=== PATIENT | male | born 1945 | race Caucasian/White ===

== ENCOUNTER → 2019-05-25 | Outpatient (CLI) | payer OTHER ==
[~2019-05-25] MED LIST: ACET325 PO; CENTRUM COMPLE1 EACH PO; LOSARTAN/HCTZ; LOSARTAN/HCTZ 100/25 PO; LOSHYD100 PO; METF500 PO; MULVITMIND PO; SITA100T2 PO
== END | disposition home or self-care (01) ==
LOC: LAB SHORT 08:00 → LAB 08:00
DX: L03.116 Cellulitis of left lower limb (principal)
CPT/HCPCS: 87070; 87077; 87147; 87186; 87205

== ENCOUNTER → 2019-06-29 | Outpatient (CLI) | payer OTHER | END | disposition home or self-care (01) | LOC: LAB 10:00 → LAB SHORT 10:00 | DX: L03.116 Cellulitis of left lower limb (principal) | CPT/HCPCS: 87070; 87077; 87147; 87186; 87205 ==

== ENCOUNTER → 2019-10-05 | Outpatient (CLI) | payer OTHER | END | disposition home or self-care (01) | LOC: LAB EV 10:13 → LAB SHORT 10:13 | DX: M25.521 Pain in right elbow (principal) | CPT/HCPCS: 84550 ==

== ENCOUNTER → 2021-02-21 | Outpatient (CLI) | payer OTHER | LOC: LAB SHORT 08:00 | DX: L03.116 Cellulitis of left lower limb (principal) | CPT/HCPCS: 87070; 87205 ==

== ENCOUNTER → 2021-03-14 | Outpatient (CLI) | payer OTHER ==
[~2021-03-14] MED LIST changes: +ALLO300 PO; +FUROSEMIDE20 MG PO; +KLOR-CON 1010 ME3 PO
== END | disposition home or self-care (01) ==
LOC: LAB 11:55 → LAB SHORT 11:55
DX: L03.116 Cellulitis of left lower limb (principal)
CPT/HCPCS: 87070; 87205

== ENCOUNTER 2021-03-24 22:02 | Emergency (ER) | payer OTHER ==
[~2021-03-24] VITALS: Ht 172.7 cm; Wt 131.5 kg
[~2021-03-24 22:02] MED LIST changes: -ALLO300 PO; -FUROSEMIDE20 MG PO; -KLOR-CON 1010 ME3 PO
== END 2021-03-24 23:18 | disposition home or self-care (01) ==
LOC: ER 22:02
DX: S91.312A Laceration without foreign body, left foot, initial encounter (principal); W26.8XXA Contact with other sharp object(s), not elsewhere classified, initial encounter; Y92.009 Unspecified place in unspecified non-institutional (private) residence as the place of occurrence of the external cause
CPT/HCPCS: 12001; 90471; 90714; 99282-25

== ENCOUNTER 2021-04-17 14:39 | Inpatient (IN) | payer OTHER ==
[~2021-04-17] VITALS: Ht 172.7 cm; Wt 120.7 kg
[2021-04-17] MEDS ORDERED: FUROSEMIDE20 MG PO (15:16)
[2021-04-17] MEDS ORDERED: ALLO300 PO (15:16)
[2021-04-17] MEDS ORDERED: KLOR-CON 1010 ME3 PO (15:16)
[2021-04-17 15:23] LABS: BASOPHILS ABSOLUTE AUTO 0.01 K/mm3 (0.00-0.23); BASOPHILS PERCENT AUTO 0 % (0-2); EOSINOPHILS PERCENT AUTO 0 % (0-6); Hematocrit 43.6 % (37.0-53.0); Hemoglobin 14.7 g/dL (13.5-17.5); IMMATURE GRAN ABSOLUTE AUTO 0.05 K/mm3 (0.00-0.10); IMMATURE GRAN PERCENT AUTO 1 % (0-1); LYMPHOCYTES ABSOLUTE AUTO 0.81 K/mm3 (0.84-5.20); LYMPHOCYTES PERCENT AUTO 11 % (21-46); MONOCYTES ABSOLUTE AUTO 0.28 K/mm3 (0.16-1.47); MONOCYTES PERCENT AUTO 4 % (4-13); Mean Corpuscular HGB Conc 33.7 g/dL (31.5-36.5); Mean Corpuscular Volume 95 fL (80-100); Mean Platelet Volume 11.4 fL (9.1-12.4); NEUTROPHILS ABSOLUTE AUTO 6.24 K/mm3 (1.96-9.15); NEUTROPHILS PERCENT AUTO 84 % (41-73); Platelet Count 115 K/mm3 (150-400); RDW Coefficient Variation 13.6 % (11.7-14.2); RDW Standard Deviation 47.8 fL (35.1-46.3); White Blood Cell Count 7.39 K/mm3 (4.00-11.30)
[2021-04-17 15:39] LABS: Albumin/Globulin Ratio 0.6 (0.8-1.8); Bilirubin, Total 0.8 mg/dL (0.1-1.0); Bun/Creatinine Ratio 15.8 (12.0-20.0); Calcium, Blood 8.1 mg/dL (8.5-10.1); Creatinine, Blood 1.46 mg/dL (0.60-1.20); Globulin, Blood 4.7 g/dL (2.2-4.0); Potassium, Blood 3.6 mmol/L (3.5-5.5); Total Protein, Blood 7.7 g/dL (6.4-8.2)
[2021-04-17 16:58] LABS: SARS-Cov-2 (COVID-19) PCR, MMC POSITIVE (NEGATIVE)
[2021-04-18 05:50] LABS: Hematocrit 44.7 % (37.0-53.0); Mean Corpuscular HGB 32.2 pg (26.0-34.0); Mean Corpuscular HGB Conc 33.6 g/dL (31.5-36.5); Mean Corpuscular Volume 96 fL (80-100); Platelet Count 103 K/mm3 (150-400); RDW Coefficient Variation 13.6 % (11.7-14.2); RDW Standard Deviation 48.6 fL (35.1-46.3); Red Blood Cell Count 4.66 M/mm3 (4.30-5.90); White Blood Cell Count 8.25 K/mm3 (4.00-11.30)
[2021-04-18 06:16] LABS: Albumin, Blood 2.6 g/dL (3.4-5.0); Albumin/Globulin Ratio 0.5 (0.8-1.8); Bilirubin, Total 0.7 mg/dL (0.1-1.0); Bun/Creatinine Ratio 20.6 (12.0-20.0); Calcium, Blood 8.8 mg/dL (8.5-10.1); Creatinine, Blood 1.26 mg/dL (0.60-1.20); Globulin, Blood 4.8 g/dL (2.2-4.0); Potassium, Blood 3.7 mmol/L (3.5-5.5); Total Protein, Blood 7.4 g/dL (6.4-8.2)
--- NOTE | 2021-04-18 06:24 | NUR ---
SHIFT SUMMARY AOX4. ADMITTED FOR COVID + LAST NIGHT. SPO2 88-94% ON 15L NONREBREATHER. HAS OCCASIONAL DYSPNEA & TACHYPNEA c RR24-34. LS DIM c SCATTERED EXP WHEEZES & COARSE IN BASES. OCC DRY NON PRODUCTIVE COUGH. DENIES PAIN, N/V. REPORTS LACK OF APPETITE. L FOOT HAS ULCER, TOOK PICS & PLACED BANDAGE. ENCOURAGED PT TO LIE PRONE. PT HAD BREATHING TX 2X & STATED THEY HELPED. INCONT OF URINE. CALL LIGHT IN REACH & PT ABLE TO MAKE NEEDS KNOWN.
--- NOTE | 2021-04-18 18:42 | NUR ---
PT IS AO,PT IS COVID POSITIVE, PT IS VERY HYPOXIC, PT HAVE BILATERAL PNEUMONIA,PT ON AIRBO 70L 90% FIO2 90 RESP IN HIGH 30'S AND 40'S, PT HAVE A LEFT ANKLE ULCER, PT IS DIABETIC, GAVE AN UPDATE TO HIS SON KARIME,PT IS IN BED, PT MOVE TO PCU TO MONITOR CLOSELY.
--- NOTE | 2021-04-18 19:12 | NUR ---
ASSUMPTION OF CARE NOTE THIS NURSE RECIEVED REPORT FROM EVONNE IBRAHIM AT APPROX. 1800. PT WAS TRANSFERED VIA HOSPITAL BED AND ASSISTED BY 4 DIFFERENT STAFF MEMBERS APROX. 1830. PT ARRIVED ON CPAP 12 AT 100% FIO2. SPO2 WAS IN LOW 90'S. PT WAS STABLE UPON ARRIVAL. PT WAS SETTLED INTO ROOM BY ROXIE IBRAHIM AND AMEE IBRAHIM. PATIENT WAS SETTLED INTO ROOM BY ROXIE IBRAHIM AND AMEE IBRAHIM SPO2 NOW 95%. HAND OFF REPORT GIVEN TO WILLEM IBRAHIM.
[2021-04-18 21:00] LABS: Source, Urine Catheter
[2021-04-18 21:04] LABS: Bilirubin, Urine Neg (Neg); Blood, Urine 5+ (Neg); Glucose Qualitative, Urine Neg (Neg); Ketones, Urine Neg (Neg); Leukocyte Esterase, Urine Neg (Neg); Nitrite, Urine Neg (Neg); Protein, Urine 3+ (Neg); Specific Gravity, Urine 1.015 (1.003-1.022); Urobilinogen, Urine NORM (Normal)
[2021-04-18 21:09] LABS: Appearance, Urine Hazy (Clear); Color, Urine Yellow (P-Yellow)
[2021-04-18 21:11] LABS: Amorphous Heavy (0-Heavy); Bacteria Few /hpf; Red Blood Cells, Urine 50-100 /hpf (0-2); Squamous Epithelial Cells Rare /hpf (Few); White Blood Cells, Urine Rare /hpf (0-5)
[2021-04-19 04:08] LABS: BASOPHILS ABSOLUTE AUTO 0.01 K/mm3 (0.00-0.23); BASOPHILS PERCENT AUTO 0 % (0-2); EOSINOPHILS PERCENT AUTO 0 % (0-6); Hematocrit 41.9 % (37.0-53.0); Hemoglobin 14.3 g/dL (13.5-17.5); IMMATURE GRAN ABSOLUTE AUTO 0.08 K/mm3 (0.00-0.10); IMMATURE GRAN PERCENT AUTO 1 % (0-1); LYMPHOCYTES ABSOLUTE AUTO 0.71 K/mm3 (0.84-5.20); LYMPHOCYTES PERCENT AUTO 6 % (21-46); MONOCYTES PERCENT AUTO 3 % (4-13); Mean Corpuscular HGB 32.4 pg (26.0-34.0); Mean Corpuscular HGB Conc 34.1 g/dL (31.5-36.5); Mean Corpuscular Volume 95 fL (80-100); NEUTROPHILS ABSOLUTE AUTO 10.98 K/mm3 (1.96-9.15); NEUTROPHILS PERCENT AUTO 90 % (41-73); Platelet Count 131 K/mm3 (150-400); RDW Coefficient Variation 13.6 % (11.7-14.2); RDW Standard Deviation 47.3 fL (35.1-46.3); Red Blood Cell Count 4.42 M/mm3 (4.30-5.90); White Blood Cell Count 12.18 K/mm3 (4.00-11.30)
[2021-04-19 04:30] LABS: Albumin, Blood 2.6 g/dL (3.4-5.0); Albumin/Globulin Ratio 0.6 (0.8-1.8); Bilirubin, Total 0.6 mg/dL (0.1-1.0); Calcium, Blood 8.9 mg/dL (8.5-10.1); Creatinine, Blood 1.29 mg/dL (0.60-1.20); Globulin, Blood 4.6 g/dL (2.2-4.0); Potassium, Blood 4.1 mmol/L (3.5-5.5); Total Protein, Blood 7.2 g/dL (6.4-8.2)
--- NOTE | 2021-04-19 05:54 | NUR ---
shift summary pt newly admitted to room from medical upon arrival. day rn received order to place gao in patient, but were unsuccessful in placement. pt appeared initially to be alert and oriented, following directions. as night went on, pt became increasingly confused, pulling at lines. prn ativan given multiple times with no improvements. redirection, securing and protecing lines and tubing done, but still no improvments. called md later in night for bilat wrist restraints as pt pulled everything off and out. restraints initiated, but then pt increasingly agitated d/t being restrained, md called again and started precedex gtt. on bipap 07/18 100% fio2. tele nsr 78. gao in place, draining to gravity, brandie care performed 400 uop. no bm. dressing changed on l ankle wound. q2 turns for pressure injury prevention. oral care q4. vss. call light within reach, bed in lowest position. will continue to monitor.
--- NOTE | 2021-04-19 07:58 | NUR ---
pt laying in bed with bipap in place, repositioned him to side, he is on precedex at this time. lungs are course t/0, no cough noted, hrr, tele in place running sr in the 70-80's, no edema noted, ppp+2, cap refill<3sec, vs stable, afebrile, iv site to lac infusing precedex at 0.4, has dressing to l ankle, wrist restraints in place, removed to reposition and assess. call light in reach.
--- NOTE | 2021-04-19 18:31 | NUR ---
pt unchanged from this am, continues on precedex, did turn of drip for a few hrs this afternoon as his heart rate was in the 40's, he was restarted after waking and pulling off bipap, no further changes this shift, call light in reach.
--- NOTE | 2021-04-19 19:35 | NUR ---
Update 04/19/21: Day 2 of hospitalization. Patient's condition worsened over night. He confusion increased and restraints necessary. Pt. near max settings on BiPAP. Concern that intubation might be necessary. Also noted that pt. likely to have a poor outcome if vent necessary. Dr. Jimenes as discussed patient's condition with his Deyanira. Patient's status remains full code. Palliative care consult ordered. Plan to continue follow patient's care and provide care coordination as needed. Palliative care likely to ezequiel out to Deyanira tomorrow to discuss care as well.
[2021-04-20 03:40] LABS: BASOPHILS ABSOLUTE AUTO 0.01 K/mm3 (0.00-0.23); BASOPHILS PERCENT AUTO 0 % (0-2); EOSINOPHILS PERCENT AUTO 0 % (0-6); Hematocrit 44.9 % (37.0-53.0); Hemoglobin 14.9 g/dL (13.5-17.5); Mean Corpuscular HGB 31.9 pg (26.0-34.0); Mean Corpuscular HGB Conc 33.2 g/dL (31.5-36.5); Mean Corpuscular Volume 96 fL (80-100); Mean Platelet Volume 10.8 fL (9.1-12.4); Platelet Count 126 K/mm3 (150-400); RDW Coefficient Variation 13.6 % (11.7-14.2); RDW Standard Deviation 48.6 fL (35.1-46.3); Red Blood Cell Count 4.67 M/mm3 (4.30-5.90); White Blood Cell Count 9.04 K/mm3 (4.00-11.30)
[2021-04-20 03:46] LABS: IMMATURE GRAN ABSOLUTE AUTO 0.07 K/mm3 (0.00-0.10); IMMATURE GRAN PERCENT AUTO 1 % (0-1); LYMPHOCYTES ABSOLUTE AUTO 0.79 K/mm3 (0.84-5.20); LYMPHOCYTES PERCENT AUTO 9 % (21-46); MONOCYTES ABSOLUTE AUTO 0.47 K/mm3 (0.16-1.47); MONOCYTES PERCENT AUTO 5 % (4-13); NEUTROPHILS PERCENT AUTO 85 % (41-73)
[2021-04-20 04:01] LABS: Albumin, Blood 2.7 g/dL (3.4-5.0); Albumin/Globulin Ratio 0.6 (0.8-1.8); Bilirubin, Total 0.8 mg/dL (0.1-1.0); Bun/Creatinine Ratio 29.5 (12.0-20.0); Calcium, Blood 8.6 mg/dL (8.5-10.1); Creatinine, Blood 1.29 mg/dL (0.60-1.20); Globulin, Blood 4.8 g/dL (2.2-4.0); Potassium, Blood 3.7 mmol/L (3.5-5.5); Total Protein, Blood 7.5 g/dL (6.4-8.2)
--- NOTE | 2021-04-20 06:17 | NUR ---
shift summary pt fairly agitated at start of shift, increased precedex gtt up some, as patient wiggled his way out of his wrists restraints and began to rip bipap off again. once patient settled and needs met, pt was able to calm down some. sats >90%, but did desat some during oral care q4hrs, recovered well and quickly. tele - nsr/renato 50-70. monitoring hr closely while on precedex gtt. gao draining to gravity, brandie care performed - 350 uop. no bm. q2 turns. bilat soft wrist restraints in place and still necessary. see emar - prn meds given for increase in pt comfortability. vss. no c/o pain. call light within reach, bed in lowest position. will continue to monitor.
--- NOTE | 2021-04-20 08:43 | NUR ---
pt laying in bed on cpap, b/l wrist restraints, he was placed on airvo with RT, and is maintaining 02 levels, he is awake, cooperative, not pulling lines at this time, restraints removed and range of motion done, mentation is a bit slow but is oriented, am care done, fed him about 30% of breakfast, took all oral medications without diff, a few at a time, get tired in between bites, has an occ dry cough, lungs are course and dim in bases, resp even and unlabored, sats 91% on airvo, resp rate is in the 30's, hrr, tele in place running sr per monitor, see strip, no edema noted, ppp+2, cap refill <3sec, vs stable, afebrile, iv to lac and rfa, sites are clear and patent, stopped precedex at this time, btx4, abd large soft nontender, gao cath draining anamaria urine, skin has a venous stasis ulcer to left ankle area, is dry, dressing was changed this am, no drainage noted, very weak but can move all ext, elvira, call light in reach.
--- NOTE | 2021-04-20 09:11 | NUR ---
PT SATS DROPPED SO WAS PLACED BACK ON CPAP AT THIS TIME. CALL LIGHT IN REACH.
--- NOTE | 2021-04-20 13:23 | NUR ---
Dr. Montgomery was here to see pt, placed him on airvo, maintaining sats in the low 90's, resp continue to be in the 40's, occ dry nonproductive cough, is swallowing without diff, but gets tired between bites/drinks, ate about 20% of lunch, and 80% of enusre. watching tv. call light in reach.
--- NOTE | 2021-04-20 18:34 | NUR ---
pt has been able to come off cpap for meals and tolerating for about an hr. has been turned throughout the day, no further changes this shift. call light in reach.
--- NOTE | 2021-04-20 18:36 | NUR ---
b/p is noted to be elevated, spoke with this am about it, and called this evening to remind for orders, left msg. call light in reach.
--- NOTE | 2021-04-20 22:55 | NUR ---
ELEVATED BP PT MOST RECENT BP WAS 190/95. CALL PLACED TO MD MCLEOD. MD MCLEOD W/ ORDERS FOR 10MG HYDRALAZINE PRN, SEE EMAR.
[2021-04-21 03:34] LABS: BASOPHILS ABSOLUTE AUTO 0.03 K/mm3 (0.00-0.23); BASOPHILS PERCENT AUTO 0 % (0-2); EOSINOPHILS PERCENT AUTO 0 % (0-6); Hematocrit 43.6 % (37.0-53.0); Hemoglobin 14.5 g/dL (13.5-17.5); IMMATURE GRAN ABSOLUTE AUTO 0.61 K/mm3 (0.00-0.10); IMMATURE GRAN PERCENT AUTO 5 % (0-1); LYMPHOCYTES PERCENT AUTO 5 % (21-46); MONOCYTES ABSOLUTE AUTO 0.63 K/mm3 (0.16-1.47); MONOCYTES PERCENT AUTO 5 % (4-13); Mean Corpuscular HGB 32.2 pg (26.0-34.0); Mean Corpuscular HGB Conc 33.3 g/dL (31.5-36.5); Mean Corpuscular Volume 97 fL (80-100); Mean Platelet Volume 10.8 fL (9.1-12.4); NEUTROPHILS ABSOLUTE AUTO 10.41 K/mm3 (1.96-9.15); NEUTROPHILS PERCENT AUTO 85 % (41-73); Platelet Count 129 K/mm3 (150-400); RDW Coefficient Variation 13.7 % (11.7-14.2); RDW Standard Deviation 49.1 fL (35.1-46.3); Red Blood Cell Count 4.51 M/mm3 (4.30-5.90); White Blood Cell Count 12.28 K/mm3 (4.00-11.30)
[2021-04-21 03:52] LABS: Albumin, Blood 2.6 g/dL (3.4-5.0); Albumin/Globulin Ratio 0.6 (0.8-1.8); Bilirubin, Total 0.8 mg/dL (0.1-1.0); Bun/Creatinine Ratio 31.2 (12.0-20.0); Calcium, Blood 8.1 mg/dL (8.5-10.1); Creatinine, Blood 1.25 mg/dL (0.60-1.20); Globulin, Blood 4.4 g/dL (2.2-4.0); Potassium, Blood 4.3 mmol/L (3.5-5.5)
--- NOTE | 2021-04-21 06:07 | NUR ---
SHIFT SUMMARY PT A&OX3. SP02>90% ON HUMIDIFIED HIFLO, 70L 80%. AROUND 0400 PT BEGAN TO DESAT TO HIGH 80'S. RT CALLED, PT PUT ON CPAP, 8, 80%. SATS INCREASED TO 95%. RR 30'S-40'S. TELEMETRY READS NSR, HR 90'S-100'S. PT HAD ONE 7 BEAT RUN OF VTACH. ENRIQUE CATHETER DRAINING CLEAR YELLOW URINE. PT BECAME ANXIOUS MULTIPLE TIMES DURING NIGHT. ATIVAN GIVEN PER EMAR X2. PRECEDEX RESTARTED, CURRENTLY INFUSING AT 0.3. PT PULLED AT LINES, REMOVED CPAP X3 (DESAT TO MID 70'S DURING), REMOVED BP CUFF MULTIPLE TIMES. NOW CURRENTLY SLEEPING. CALL LIGHT IN REACH. WILL GIVE REPORT TO ONCOMING NURSE.
--- NOTE | 2021-04-21 09:49 | NUR ---
pt became very agitated and confused in the early childhood associate hrs, was placed back on cpap and precedex, is still confused this am, and pulling on bipap, placed him on airvo for a short time, he did maintain sats but is pulling it off, turned precedex up to 0.7, pt doing better now, hr in the 50's, lungs are dim t/o, resp even and unlabored, no cough noted, hrr, tele in place running sb to sr per monitor, see strip, no edema noted, ppp+2, cap refill <3sec, vs stable, afebrile, iv site is clear and patent, btx4, abd flat soft nontender, voids via gao cath draining clear anamaria urine, skin has a wound to his left ankle, dressing was changed this am, elvira villeda, call light in reach.
--- NOTE | 2021-04-21 15:26 | NUR ---
pt became very agitated and proned himself, pulling iv out and bipap off in the process, he was placed on his side, new iv placed to right fa, precides was titrated down to 0.5 because heart rate was in the 40's, just started again and turned back to 0.7. heart rate in the low 50's at this time, turned back to back as that was what he was trying to do. bipap in place, RT in room, sats 94%. call light in reach.
--- NOTE | 2021-04-21 18:46 | NUR ---
pt has been agitated and confused all day, continued with precedex at 0.7, heart rate does drop in the 40's, has pulled multiple iv's out and the mask/airvo off, gave 1mg ativan with good relief, no further changes this shift. call light in reach.
--- NOTE | 2021-04-21 21:29 | NUR ---
ELEVATED BP PT'S BP WAS 197/119. CALL PLACED TO MD MILLER. MD MILLER W/ ORDERS FOR ONE TIME IV HYDRALAZINE 10MG.
--- NOTE | 2021-04-22 06:31 | NUR ---
SHIFT SUMMARY NO ACUTE CHANGES THIS SHIFT. PT CONFUSED, AGITATED. PULLING AT LINES. SOFT WRIST RESTRAINTS IN PLACE. SP02>92% ON CPAP 8, 80%. TELEMETRY READS NSR, HR 70'S. PT HAD ELEVATED BP THIS SHIFT, SEE PREVIOUS NOTE. PT REPOSITIONED SELF IN BED. ENRIQUE CATHETER DRAINING TO GRAVITY. PRECEDEX INFUSING AT 0.6. CALL LIGHT IN REACH. WILL GIVE REPORT TO ONCOMING NURSE.
[2021-04-22 07:40] LABS: BASOPHILS ABSOLUTE AUTO 0.04 K/mm3 (0.00-0.23); BASOPHILS PERCENT AUTO 0 % (0-2); EOSINOPHILS PERCENT AUTO 0 % (0-6); Hematocrit 46.2 % (37.0-53.0); IMMATURE GRAN ABSOLUTE AUTO 0.44 K/mm3 (0.00-0.10); IMMATURE GRAN PERCENT AUTO 4 % (0-1); LYMPHOCYTES ABSOLUTE AUTO 0.59 K/mm3 (0.84-5.20); LYMPHOCYTES PERCENT AUTO 5 % (21-46); MONOCYTES ABSOLUTE AUTO 0.57 K/mm3 (0.16-1.47); MONOCYTES PERCENT AUTO 5 % (4-13); Mean Corpuscular HGB Conc 32.5 g/dL (31.5-36.5); Mean Corpuscular Volume 99 fL (80-100); Mean Platelet Volume 11.6 fL (9.1-12.4); NEUTROPHILS ABSOLUTE AUTO 9.96 K/mm3 (1.96-9.15); NEUTROPHILS PERCENT AUTO 86 % (41-73); Platelet Count 126 K/mm3 (150-400); RDW Coefficient Variation 13.6 % (11.7-14.2); RDW Standard Deviation 49.7 fL (35.1-46.3); Red Blood Cell Count 4.69 M/mm3 (4.30-5.90)
[2021-04-22 08:14] LABS: Alanine Aminotransfer (ALT/SGP 224 U/L (12-78); Albumin, Blood 2.5 g/dL (3.4-5.0); Albumin/Globulin Ratio 0.6 (0.8-1.8); Alk Phos 111 U/L (50-136); Anion Gap 3 mmol/L (6-16); Aspartate Aminotrans (AST/SGOT 200 U/L (12-37); Bilirubin, Total 0.7 mg/dL (0.1-1.0); Blood Urea Nitrogen 37 mg/dL (8-24); Bun/Creatinine Ratio 33.6 (12.0-20.0); CO2, Blood 24 mmol/L (21-32); Calcium, Blood 8.1 mg/dL (8.5-10.1); Chloride, Blood 121 mmol/L (98-108); Globulin, Blood 4.3 g/dL (2.2-4.0); Glomerular Filtration Rate >60 (60-); Glucose, Blood 179 mg/dL (70-99); Magnesium, Blood 2.5 mg/dL (1.6-2.4); Phosphorus, Blood 2.4 mg/dL (2.5-4.9); Potassium, Blood 4.5 mmol/L (3.5-5.5); Sodium, Blood 148 mmol/L (136-145); Total Protein, Blood 6.8 g/dL (6.4-8.2)
--- NOTE | 2021-04-22 18:38 | NUR ---
SHIFT SUMMARY: NO ACUTE CHANGES T/OUT SHIFT. PT CONTINUES CONFUSED, MUMBLING INCOHERENTLY OFTEN, OCCASIONALLY ABLE TO SHAKE/NOD HEAD IN RESPONSE TO SIMPLE QUESTION. PT CONTINUES TO FIDGET/PULL AT TUBES AND LINES, CHRISTEN SWR CONTINUE IN PLACE. PT MAINTAINED O2 SATS >90%, CURRENT CPAP SETTINGS 8cmH20 AND 60% FIO2. PRN MEDS FOR HTN USED ONCE THIS SHIFT. INDWELLING ENRIQUE CONTINUES TO DRAIN TO GRAVITY, DARK LUIS MANUEL URINE. PRECEDEX GTT CONTINUES, CURRENTLY INFUSING AT 0.5 MCG/KG/HR. REPOSITIONING AND ORAL CARE PROVIDED PER PROTOCOL. WILL CONTINUE TO MONITOR AND TREAT ACCORDINGLY UNTIL CHANGE OF SHIFT.
--- NOTE | 2021-04-23 04:52 | NUR ---
SHIFT SUMMARY NO ACUTE CHANGES THIS SHIFT. PT CONFUSED, MUMBLES INCOHERANTLY. ANSWERS SIMPLE QUESTIONS. CALLS OUT INSTEAD OF USING CALL LIGHT. SP02>92% ON CPAP, 8 cmH20, 60% FI02. TELEMETRY READS NSR W/ PVCS, HR 50'S-70'S. ENRIQUE CATHETER DRAINING DARK YELLOW URINE TO GRAVITY. NO BM THIS SHIFT. PT REPOSITIONED W/ MODERATE HELP, ABLE TO HELP BOOST AND TURN. PRECEDEX INFUSING AT 0.5. SOFT BILAT WRIST RESTRAINTS IN PLACE. PT RELEASED HIMSELF FROM L RESTRAINT AT START OF SHIFT AND TOOK OFF CPAP, ATTEMPED TO CLIMB OUT OF BED. PT DESATTED TO MID 70'S. RN IN ROOM, PT REMAINED IN BED, MASK REPLACED, AND QUICKLY INCREASED TO 90'S. CALL LIGHT IN REACH. WILL GIVE REPORT TO ONCOMING NURSE.
[2021-04-23 08:17] LABS: BASOPHILS ABSOLUTE AUTO 0.08 K/mm3 (0.00-0.23); BASOPHILS PERCENT AUTO 1 % (0-2); EOSINOPHILS PERCENT AUTO 0 % (0-6); Hematocrit 50.5 % (37.0-53.0); Hemoglobin 16.2 g/dL (13.5-17.5); IMMATURE GRAN ABSOLUTE AUTO 0.73 K/mm3 (0.00-0.10); IMMATURE GRAN PERCENT AUTO 7 % (0-1); LYMPHOCYTES ABSOLUTE AUTO 0.47 K/mm3 (0.84-5.20); LYMPHOCYTES PERCENT AUTO 4 % (21-46); MONOCYTES ABSOLUTE AUTO 0.52 K/mm3 (0.16-1.47); MONOCYTES PERCENT AUTO 5 % (4-13); Mean Corpuscular HGB 32.1 pg (26.0-34.0); Mean Corpuscular HGB Conc 32.1 g/dL (31.5-36.5); Mean Corpuscular Volume 100 fL (80-100); Mean Platelet Volume 11.9 fL (9.1-12.4); NEUTROPHILS ABSOLUTE AUTO 9.27 K/mm3 (1.96-9.15); NEUTROPHILS PERCENT AUTO 84 % (41-73); NRBC ABSOLUTE 0.02 K/mm3 (0.00-0.02); NRBC Auto 0.2 /100 WBC (0.0-0.2); Platelet Count 100 K/mm3 (150-400); RDW Coefficient Variation 13.5 % (11.7-14.2); RDW Standard Deviation 50.1 fL (35.1-46.3); Red Blood Cell Count 5.05 M/mm3 (4.30-5.90); White Blood Cell Count 11.07 K/mm3 (4.00-11.30)
[2021-04-23 08:35] LABS: Alanine Aminotransfer (ALT/SGP 261 U/L (12-78); Albumin, Blood 2.2 g/dL (3.4-5.0); Albumin/Globulin Ratio 0.5 (0.8-1.8); Alk Phos 140 U/L (50-136); Anion Gap 4 mmol/L (6-16); Aspartate Aminotrans (AST/SGOT 214 U/L (12-37); Blood Urea Nitrogen 37 mg/dL (8-24); CO2, Blood 20 mmol/L (21-32); Calcium, Blood 8.4 mg/dL (8.5-10.1); Chloride, Blood 120 mmol/L (98-108); Globulin, Blood 4.7 g/dL (2.2-4.0); Glomerular Filtration Rate >60 (60-); Glucose, Blood 164 mg/dL (70-99); Magnesium, Blood 2.5 mg/dL (1.6-2.4); Phosphorus, Blood 2.2 mg/dL (2.5-4.9); Potassium, Blood 5.4 mmol/L (3.5-5.5); Sodium, Blood 144 mmol/L (136-145); Total Protein, Blood 6.9 g/dL (6.4-8.2)
[2021-04-23 08:42] LABS: BAND PERCENT MAN 3 % (0-8); BASOPHILS PERCENT MAN 0 % (0-2); EOSINOPHILS PERCENT MAN 0 % (0-6); LYMPHOCYTES ABSOLUTE MAN 0.55 K/mm3 (0.84-5.20); LYMPHOCYTES PERCENT MAN 5 % (21-46); METAMYELOCYTE ABSOLUTE MAN 0.11 K/mm3 (0.00-0.00); METAMYELOCYTE PERCENT MAN 1 % (0-0); MONOCYTES ABSOLUTE MAN 0.11 K/mm3 (0.16-1.47); MONOCYTES PERCENT MAN 1 % (4-13); MYELOCYTE ABSOLUTE MAN 0.44 K/mm3 (0.00-0.00); MYELOCYTE PERCENT MAN 4 % (0-0); NEUTROPHILS ABSOLUTE MAN 9.85 K/mm3 (1.96-9.15); SEG NEUTROPHILS PERCENT MAN 86 % (41-73); TOTAL CELLS COUNTED 100
--- NOTE | 2021-04-23 09:05 | NUR ---
LATE ENTRY COPIED FROM [facility] EMR - WEEKEND UPDATES Update 04/22/21: Day 5 of hospitalization. Settings: CPAP 8 LPM. FiO2 70%. SPO2 92%. Overnight on 04/21/21 patient's confusion increased and he became agitated. Restraints used to avoid interference with medical care. Pt. has been sedated. Palliative care consult ordered on 04/19/21.
[2021-04-23 11:20] LABS: C-REACTIVE PROTEIN, EXT RANGE 5.16 mg/dL (0.000-0.300)
[2021-04-23 13:40] LABS: PCO2 Arterial 33.4 mmHg (35-45); PO2 Arterial 62.9 mmHg (80-100); pH Blood Arterial 7.48 (7.35-7.45)
--- NOTE | 2021-04-23 16:52 | NUR ---
Echocardiogram completed.
--- NOTE | 2021-04-23 17:57 | NUR ---
Update 04/23/21: Day 6 of hospitalization. Settings: CPAP 8 L. FiO2 60%. SPO2 95%. Echocardiogram completed today. Called patient's Deyanira to provide update. No significant changes since she was last updated. Answered questions regarding care team and roles. Briefly discussed discharge planning. Deyanira thanked me for the updates. She will likely call to check in with nursing staff prior to going to [facility].
--- NOTE | 2021-04-23 19:56 | NUR ---
END OF SHIFT SUMMARY: ASSUMED CARE OF MELISSA PATIENT ON 729. PATIENTS MENTATION IS INCREASINGLY GETTING BETTER, BUT IS SLIGHTLY ANXIOUS, DEEP BREATHING AND REPOSITIONING DONE, WHICH HELPED UNTIL AROUND 1400 WHERE HE WAS GETTING ANXIOUS AND BREATHING WAS RR INCREASED. ADJUNCT ANX MEDS PER EMAR AND PATIENT RESTFULLY WAS CALMER AND ABLE TO RELAX, SLEEP, AND KEEP SPO2 GREATER THAN 94% PATIENT IS ON CPAP 8CM AT 60%. WITH HIS ANXIETY HE TENDS TO PULL LINES AND MASK TO WHICH HE DESATURATATES TO THE LOW 80'S. BILATERALLY RESTRAINED IN SWR'S WHICH WERE TOLERATED WELL. CLINIMIX AND FAT EMULSIONS ORDERED HAS BEEN NPO HE BREAHTES EXTREMEY HARD WHEN MASKED IS REMOVED FOR ANY AMOUNT OF TIME. PATIENT IS A HIGH RISK FOR ASPIRATION A DN SPEECH WAS TOLD OF THIS, SO THEY DID NOT EVALUATE AND TREAT AT THIS TIME. CHEST XR AND ECHO PREFORMED TODAY. ELVEATED LABS PRESENT. PATIENT RECIVING TWO ATX IV. LOVENOX, ACHS CBG'S WERE PREFORMED, I BELIEVE ORDER CHANGED TO Q6 NIGHT NURSE WILL VERIFY. PATIENTS BP;S HAVE BEEN ELEVATED DUE TO ANXIETY, WHICH BOTH THE ANX ADJUNCT AND HYDRALAZINE HELPED. PRECEDEX AT .5. LEFT FOOT ULCER WHICH WAS CLEANED AND MEDIHONEY PLACED IN SITU, NON ADHERENT BANDAGE AND GAUZE PLACED LOOSELY AROUND.
--- NOTE | 2021-04-24 05:07 | NUR ---
SHIFT SUMMARY AOX2-SELF & PLACE LAST NIGHT. HAS OCC INCREASED CONFUSION/AGITATION & WILL NOT BE ABLE TO ANSWER QUESTIONS APPROPRIATE. WILL START YELLING "HELP, HELP, HELP" GO INTO RM TO ASSESS PTS NEEDS & HE STATES "I'M TRYING TO CLIMB A FENCE" OR OTHER NONSENSICAL RESPONSES. MEDICATED 2X c 1MG ATIVAN FOR ANXIETY & AGITATION, PT RESTED WELL AFTER & WAS NO LONGER YELLING OUT. TELE NSR c PVC @70. SPO2 94-96% ON CPAP @60% FIO2. RR 26-36. SWR IN PLACE FOR SAFETY, SINCE PT CONFUSED & PULLING @LINES. PRECEDEX GTT @0.5MCG/KG/HR. RECIEVING CLINIMIX SINCE PT NPO R/T ASPIRATION RISK & INABILITY TO TOLERATE CPAP OFF FOR LONG. ENRIQUE PATENT & DRAINING DARK YELLOW URINE. REPOSITIONED & PO CARE PROVIDED PRN. CALL LIGHT & BED ALARM IN PLACE.
[2021-04-24 07:50] LABS: Hematocrit 44.5 % (37.0-53.0); Hemoglobin 14.6 g/dL (13.5-17.5); Mean Corpuscular HGB 31.8 pg (26.0-34.0); Mean Corpuscular HGB Conc 32.8 g/dL (31.5-36.5); Mean Corpuscular Volume 97 fL (80-100); Mean Platelet Volume 11.6 fL (9.1-12.4); NRBC ABSOLUTE 0.02 K/mm3 (0.00-0.02); NRBC Auto 0.2 /100 WBC (0.0-0.2); Platelet Count 137 K/mm3 (150-400); RDW Coefficient Variation 13.5 % (11.7-14.2); RDW Standard Deviation 48.3 fL (35.1-46.3); Red Blood Cell Count 4.59 M/mm3 (4.30-5.90)
[2021-04-24 08:04] LABS: Alanine Aminotransfer (ALT/SGP 269 U/L (12-78); Albumin, Blood 2.3 g/dL (3.4-5.0); Albumin/Globulin Ratio 0.5 (0.8-1.8); Alk Phos 146 U/L (50-136); Anion Gap 5 mmol/L (6-16); Aspartate Aminotrans (AST/SGOT 154 U/L (12-37); Bilirubin, Total 0.5 mg/dL (0.1-1.0); Blood Urea Nitrogen 36 mg/dL (8-24); Bun/Creatinine Ratio 35.6 (12.0-20.0); CO2, Blood 25 mmol/L (21-32); Calcium, Blood 8.3 mg/dL (8.5-10.1); Chloride, Blood 116 mmol/L (98-108); Creatinine, Blood 1.01 mg/dL (0.60-1.20); Globulin, Blood 4.2 g/dL (2.2-4.0); Glomerular Filtration Rate >60 (60-); Glucose, Blood 220 mg/dL (70-99); Magnesium, Blood 2.7 mg/dL (1.6-2.4); Phosphorus, Blood 2.5 mg/dL (2.5-4.9); Potassium, Blood 4.5 mmol/L (3.5-5.5); Sodium, Blood 146 mmol/L (136-145); Total Protein, Blood 6.5 g/dL (6.4-8.2)
[2021-04-24 09:56] LABS: BAND PERCENT MAN 1 % (0-8); BASOPHILS PERCENT MAN 0 % (0-2); EOSINOPHILS PERCENT MAN 0 % (0-6); LYMPHOCYTES PERCENT MAN 1 % (21-46); METAMYELOCYTE PERCENT MAN 1 % (0-0); MONOCYTES ABSOLUTE MAN 0.31 K/mm3 (0.16-1.47); MONOCYTES PERCENT MAN 3 % (4-13); MYELOCYTE ABSOLUTE MAN 0.62 K/mm3 (0.00-0.00); MYELOCYTE PERCENT MAN 6 % (0-0); NEUTROPHILS ABSOLUTE MAN 9.25 K/mm3 (1.96-9.15); SEG NEUTROPHILS PERCENT MAN 88 % (41-73); TOTAL CELLS COUNTED 100
--- NOTE | 2021-04-24 16:30 | NUR ---
HIGH FLOW NC TRIAL @ 1545, CPAP REMOVED & HFNC PLACED ON 15L. RR SLIGHTLY INCREASED TO 32/34 BUT WAS ABLE TO MAINTAIN SATURATIONS. AROUND 1620, SATS WERE OK BUT RESPS BECAME UNEVEN & APNIEC PEROID NOTED. CPAP REPLACED W/ PRIOR SETTINGS.
--- NOTE | 2021-04-24 18:02 | NUR ---
RESTRAINTS DUE TO PT PULLING OFF CPAP REPEATEDLY & DESATURATING EVEN W/ REDIRECTION, DISTRACTION, & OFFERING SEVERAL COMFORTS/NEEDS & REPOSITIONING. RESTRAINTS INITIATTED AFTER CALL TO HOSPITALIST.
--- NOTE | 2021-04-24 18:24 | NUR ---
Update 04/24/21: Spoke with patient's this evening to provide an update regarding his condition. Answered questions regarding care. We briefly discuss his oxygen needs. She requested that I add not to chart that pt. uses a NC with CPAP at home. She expressed that she is hopeful that Christophe will be able to adjust to successfully adjust to using a NC again rather than the mask. She is concerned that the mask increases his anxiety. I assured her that Christophe is receiving excellent care from his entire care team here and that they are working help in get to a point where he can meet that goal. Deyanira thanked me for my time and denied any other questions or concerns.
--- NOTE | 2021-04-24 18:32 | NUR ---
SHIFT SUMMARY PT REMAINED ALERT AND ORIENTED TO PLACE AND PERSON BUT WOULD BECOME DISORIENTED TO SITUTION ON AND OFF T/O THE SHIFT. PT REMAINED PLEASANT T/O SHIFT BUT REPORTED ANXIETY AT APPROX. 1400 WELL APPROX 1800 AND WAS TREATED PER EMAR W/ ATIVAN 1MG X 2. PT REMAINED ON CPAP FOR MAJORITY OF SHIFT PRESSURE 8, FIO2 60% AND SATURATIONS WERE 90%. HIGH FLOW NASAL CANNULA WAS TRIALED THIS AFTERNOON BUT PATIENT HAD IRREGULAR AND INCREASED BREATHING SO CPAP WAS PLACED BACK ON PATIENT. SBP RANGED 127-185, HR RANGED FROM 61-90. PT REMAINS NPO W/ CLINIMIX/LIPIDS RUNNING PER EMAR. ENRIQUE CATHETER IS PATENT AND DRAINING W/ GRAVITY. NO OTHER ACUTE CHANGES NOTED. PT NOW RESTING, WILL CONTINUE TO MONITOR.
--- NOTE | 2021-04-25 04:14 | NUR ---
SHIFT SUMMARY AOX2-SELF, HOSPITAL & FOLLOWING SIMPLE DIRECTIONS. FORGETFUL & ANXIOUS @TIMES. ASKS "WHAT HOSPITAL AM I AT?". 1X PT YELLING "HELP, HELP, HELP" "I CAN'T MOVE MY ARMS" & PT STATING HE FELT VERY ANXIOUS, GAVE 1MG ATIVAN & ABLE TO REST COMFORTABLY. ABLE TO RESPOND APPROPRIATE TO QUESTIONS TONIGHT. SPEECH DIFFICULT TO UNDERSTAND @TIMES c CPAP MASK ON. SPO2 >90% ON CPAP, 8CM @55% FIO2. RR 24-34. DENIES DYSPNEA. OCC DRY COUGH. TELE SR-SB. ROM c ALL EXT, REPOSITIONED & PO CARE PROVIDED. RECIEVING PRECEDEX @0.5MCG/KG/HR FOR OCC AGITATION. SWR IN PLACE FOR SAFETY, SINCE PT WILL PULL @LINES. RECIEVING CLINIMIX & LIPIDS SINCE PT NPO. IVA PATENT & DRAINING. CALL LIGHT & BED ALARM IN PLACE.
[2021-04-25 07:28] LABS: BASOPHILS ABSOLUTE AUTO 0.03 K/mm3 (0.00-0.23); BASOPHILS PERCENT AUTO 0 % (0-2); EOSINOPHILS PERCENT AUTO 0 % (0-6); Hematocrit 44.2 % (37.0-53.0); Hemoglobin 14.3 g/dL (13.5-17.5); IMMATURE GRAN ABSOLUTE AUTO 0.88 K/mm3 (0.00-0.10); IMMATURE GRAN PERCENT AUTO 9 % (0-1); LYMPHOCYTES ABSOLUTE AUTO 0.55 K/mm3 (0.84-5.20); LYMPHOCYTES PERCENT AUTO 5 % (21-46); MONOCYTES ABSOLUTE AUTO 0.32 K/mm3 (0.16-1.47); MONOCYTES PERCENT AUTO 3 % (4-13); Mean Corpuscular HGB 32.1 pg (26.0-34.0); Mean Corpuscular HGB Conc 32.4 g/dL (31.5-36.5); Mean Corpuscular Volume 99 fL (80-100); Mean Platelet Volume 11.6 fL (9.1-12.4); NEUTROPHILS ABSOLUTE AUTO 8.33 K/mm3 (1.96-9.15); NEUTROPHILS PERCENT AUTO 82 % (41-73); Platelet Count 127 K/mm3 (150-400); RDW Coefficient Variation 13.2 % (11.7-14.2); RDW Standard Deviation 48.7 fL (35.1-46.3); Red Blood Cell Count 4.45 M/mm3 (4.30-5.90); White Blood Cell Count 10.11 K/mm3 (4.00-11.30)
[2021-04-25 07:43] LABS: Alanine Aminotransfer (ALT/SGP 293 U/L (12-78); Albumin, Blood 2.3 g/dL (3.4-5.0); Albumin/Globulin Ratio 0.6 (0.8-1.8); Alk Phos 148 U/L (50-136); Anion Gap 4 mmol/L (6-16); Aspartate Aminotrans (AST/SGOT 149 U/L (12-37); Bilirubin, Total 0.5 mg/dL (0.1-1.0); Blood Urea Nitrogen 43 mg/dL (8-24); Bun/Creatinine Ratio 43.1 (12.0-20.0); CO2, Blood 26 mmol/L (21-32); Calcium, Blood 8.3 mg/dL (8.5-10.1); Chloride, Blood 112 mmol/L (98-108); Globulin, Blood 4.1 g/dL (2.2-4.0); Glomerular Filtration Rate >60 (60-); Glucose, Blood 241 mg/dL (70-99); Magnesium, Blood 2.7 mg/dL (1.6-2.4); Phosphorus, Blood 3.8 mg/dL (2.5-4.9); Potassium, Blood 5.1 mmol/L (3.5-5.5); Sodium, Blood 142 mmol/L (136-145); Total Protein, Blood 6.4 g/dL (6.4-8.2)
[2021-04-25 07:53] LABS: BASOPHILS PERCENT MAN 0 % (0-2); EOSINOPHILS PERCENT MAN 0 % (0-6); LYMPHOCYTES PERCENT MAN 2 % (21-46); METAMYELOCYTE PERCENT MAN 1 % (0-0); MONOCYTES PERCENT MAN 5 % (4-13); MYELOCYTE PERCENT MAN 5 % (0-0); NEUTROPHILS ABSOLUTE MAN 8.79 K/mm3 (1.96-9.15); SEG NEUTROPHILS PERCENT MAN 87 % (41-73); TOTAL CELLS COUNTED 100
--- NOTE | 2021-04-25 17:42 | NUR ---
SUMMARY PT A/O TO PERSON, PLACE, AND MONTH. FORGETFUL AT TIMES BUT PLEASANT AND COOPERATIVE. WAS ABLE TO TRANSITION TO AIRVO TODAY FROM CPAP. WAS ABLE TO TALK TO BRIEFLY ON THE PHONE. WORKED WITH SPEECH THERAPY AND DID WELL. DIET ORDERED. PRECEDEX WAS TITRATED OFF TODAY AND ATIVAN USED INSTEAD WITH GOOD RESULTS. PT WILL ASK FOR "ANXIETY PILL" WHEN HE IS FEELING ANXIOUS. SITTING UP WATCHING TV NOW. NO SIGN OF DISTRESS.
--- NOTE | 2021-04-26 06:25 | NUR ---
SHIFT SUMMARY PT ALERT AND ORIENTED TO PERSON, PLACE, AND YEAR. TOLERATED CPAP DURING THE NIGHT, FIO2 @ 40% O2 SATS >90%. AROUND 0500 PT REQUESTING A BREAK, PLACED ON AIRVO 35L/40% c O2 SATS >95%. PT PRECEDEX HAS REMAINED OFF SINCE DAY SHIFT ON 04/25/21. PT REQUIRED ONE DOSE OF 1MG ATIVAN FOR ANXIETY AROUND MIDNIGHT, REQUESTED MORE @ 0500, THIS NURSE ABLE TO CALM PT/ ASSIST IN RELAXING. ENRIQUE CATH PATENT, DRAINING LUIS MANUEL URINE. NO BM THIS SHIFT. CLINIMIX CONTINUES. NO OTHER SIGNIFICANT CHANGES. REPORT TO ONCOMING NURSE.
[2021-04-26 14:15] LABS: Albumin, Blood 2.6 g/dL (3.4-5.0); Albumin/Globulin Ratio 0.6 (0.8-1.8); Bilirubin, Total 0.8 mg/dL (0.1-1.0); Bun/Creatinine Ratio 38.7 (12.0-20.0); Calcium, Blood 8.5 mg/dL (8.5-10.1); Creatinine, Blood 1.19 mg/dL (0.60-1.20); Globulin, Blood 4.3 g/dL (2.2-4.0); Potassium, Blood 5.3 mmol/L (3.5-5.5); Total Protein, Blood 6.9 g/dL (6.4-8.2)
--- NOTE | 2021-04-26 18:36 | NUR ---
SUMMARY Neuro: Pt A&O x 3. Answers questions. Follows commands. Verbalizes needs. Pleasant and cooperative with care. Musculoskeletal: Mobility limited by cords, lines, tubes, weakness, and deconditioning. Pt worked with PT/OT for in-bed mobility and ADLs. Respiratory: Lungs dim t/o. Pt using V60 high flow therapy with 35 LPM and 40% FiO2. No cough noted this shift. Cardiac: SR per monitor. BP stable. Distant heart sounds. 1+ pulses radial, pedal, posttibial. Trace edema BUE and BLE. Capillary refill less than 3 seconds BUE and BLE. GI: Hypoactive BT. [facility] soft with thin liquids. Clinimix recently DC'd. CBG ACHS instead of Q6H. NPO after midnight for ABD ultrasound. : Lynn catheter in place, patent and draining. Skin: Bandage to bridge of nose. Dressing and tx per orders for LLE. Psych: Pt pleasant and cooperative with care. Did not state anxiety this shift. Pt updating family and friends using in-room phone.
--- NOTE | 2021-04-27 02:59 | NUR ---
THIS LN TOOK OVER CARE AROUND 04/26 AT 2300, PATIENT IS ALERT AND ORIENATED X 4, ABLE TO MAKE NEEDS KNOWN AND RECALL EVENTS OF THE DAY. HE IS ON 8L HFNC AND SATURATIONS 90-92%, HEART RATE SR 70-80'S, AFEBRILE, BLOOD PRESSURE STABLE, NO COMPLAINTS OF PAIN, ABLE TO USE CELL PHONE TO CALL FAMILY. WILL CONTINUE TO MONITOR.
[2021-04-27 03:50] LABS: Hematocrit 44.3 % (37.0-53.0); Hemoglobin 14.4 g/dL (13.5-17.5); Mean Corpuscular HGB Conc 32.5 g/dL (31.5-36.5); Mean Corpuscular Volume 98 fL (80-100); Mean Platelet Volume 12.5 fL (9.1-12.4); Platelet Count 160 K/mm3 (150-400); RDW Coefficient Variation 13.3 % (11.7-14.2); RDW Standard Deviation 48.4 fL (35.1-46.3); White Blood Cell Count 15.06 K/mm3 (4.00-11.30)
[2021-04-27 04:13] LABS: Albumin, Blood 2.5 g/dL (3.4-5.0); Albumin/Globulin Ratio 0.6 (0.8-1.8); Bun/Creatinine Ratio 37.5 (12.0-20.0); Calcium, Blood 8.3 mg/dL (8.5-10.1); Creatinine, Blood 1.2 mg/dL (0.60-1.20); Potassium, Blood 5.3 mmol/L (3.5-5.5); Total Protein, Blood 6.5 g/dL (6.4-8.2)
[2021-04-27 04:30] LABS: BAND PERCENT MAN 2 % (0-8); BASOPHILS PERCENT MAN 0 % (0-2); EOSINOPHILS PERCENT MAN 0 % (0-6); LYMPHOCYTES ABSOLUTE MAN 0.75 K/mm3 (0.84-5.20); LYMPHOCYTES PERCENT MAN 5 % (21-46); METAMYELOCYTE PERCENT MAN 2 % (0-0); MONOCYTES PERCENT MAN 4 % (4-13); MYELOCYTE ABSOLUTE MAN 0.15 K/mm3 (0.00-0.00); MYELOCYTE PERCENT MAN 1 % (0-0); NEUTROPHILS ABSOLUTE MAN 13.25 K/mm3 (1.96-9.15); SEG NEUTROPHILS PERCENT MAN 86 % (41-73); TOTAL CELLS COUNTED 100
--- NOTE | 2021-04-27 16:07 | NUR ---
Update 04/27/21: Pt. continues to make progress. Per chart review, mentation has improved. Now able to tolerate NC. while maintaining appropriate sats. Able to eat and take medications orally. Called patient's Deyanira to provide update. Discussed improvements. Pt. remains on 8 LPM. Advised Deyanira that the goal is to get patients below 6 LPM prior to discharge. We discussed PT recommendations for SNF. Deyanira would prefer PT/OT if at all possible. I advised that PT/OT at [facility] will continue to work with pt. We can re-evaluate D/C plan on Friday. Requested that I discussed probiotics with Dr. Mckenzie, as she is concerned with the amount of antibiotics pt. has been on. Discussed as requested.
--- NOTE | 2021-04-27 18:26 | NUR ---
SHIFT SUMMARY PT SHOWS IMPROVED CONSISTENT SPO2 LEVEL IN 90S FOR THE PAST 8 HOURS ON 8L HNC @OXYMIZER. PT IS EATING WELL AND A/OX4. PT SEEMS HAPPY AND WILLING TO PARTICIPATE IN HIS RECOVERY. PT WAS HYDRALAZINE AT 1800 DUE TO HIGH BP'S 177/103.
[2021-04-28 04:22] LABS: BASOPHILS ABSOLUTE AUTO 0.02 K/mm3 (0.00-0.23); BASOPHILS PERCENT AUTO 0 % (0-2); EOSINOPHILS PERCENT AUTO 0 % (0-6); Hematocrit 43.4 % (37.0-53.0); IMMATURE GRAN ABSOLUTE AUTO 0.62 K/mm3 (0.00-0.10); IMMATURE GRAN PERCENT AUTO 5 % (0-1); LYMPHOCYTES ABSOLUTE AUTO 0.88 K/mm3 (0.84-5.20); LYMPHOCYTES PERCENT AUTO 7 % (21-46); MONOCYTES ABSOLUTE AUTO 0.72 K/mm3 (0.16-1.47); MONOCYTES PERCENT AUTO 6 % (4-13); Mean Corpuscular HGB Conc 32.3 g/dL (31.5-36.5); Mean Corpuscular Volume 99 fL (80-100); Mean Platelet Volume 12.1 fL (9.1-12.4); NEUTROPHILS ABSOLUTE AUTO 9.94 K/mm3 (1.96-9.15); NEUTROPHILS PERCENT AUTO 82 % (41-73); Platelet Count 140 K/mm3 (150-400); RDW Coefficient Variation 13.2 % (11.7-14.2); RDW Standard Deviation 48.4 fL (35.1-46.3); Red Blood Cell Count 4.37 M/mm3 (4.30-5.90); White Blood Cell Count 12.18 K/mm3 (4.00-11.30)
[2021-04-28 04:43] LABS: Alanine Aminotransfer (ALT/SGP 736 U/L (12-78); Albumin, Blood 2.5 g/dL (3.4-5.0); Albumin/Globulin Ratio 0.6 (0.8-1.8); Alk Phos 156 U/L (50-136); Anion Gap 5 mmol/L (6-16); Aspartate Aminotrans (AST/SGOT 363 U/L (12-37); Bilirubin, Total 1.1 mg/dL (0.1-1.0); Blood Urea Nitrogen 46 mg/dL (8-24); Bun/Creatinine Ratio 40.4 (12.0-20.0); CO2, Blood 28 mmol/L (21-32); Chloride, Blood 108 mmol/L (98-108); Creatinine, Blood 1.14 mg/dL (0.60-1.20); Glomerular Filtration Rate >60 (60-); Glucose, Blood 147 mg/dL (70-99); Potassium, Blood 5.2 mmol/L (3.5-5.5); Sodium, Blood 141 mmol/L (136-145); Total Protein, Blood 6.5 g/dL (6.4-8.2)
[2021-04-28 04:57] LABS: BAND PERCENT MAN 2 % (0-8); BASOPHILS PERCENT MAN 0 % (0-2); EOSINOPHILS PERCENT MAN 0 % (0-6); LYMPHOCYTES ABSOLUTE MAN 0.73 K/mm3 (0.84-5.20); LYMPHOCYTES PERCENT MAN 6 % (21-46); METAMYELOCYTE ABSOLUTE MAN 0.24 K/mm3 (0.00-0.00); METAMYELOCYTE PERCENT MAN 2 % (0-0); MONOCYTES ABSOLUTE MAN 0.36 K/mm3 (0.16-1.47); MONOCYTES PERCENT MAN 3 % (4-13); NEUTROPHILS ABSOLUTE MAN 10.84 K/mm3 (1.96-9.15); SEG NEUTROPHILS PERCENT MAN 87 % (41-73); TOTAL CELLS COUNTED 100
--- NOTE | 2021-04-28 06:21 | NUR ---
SHIFT SUMMARY PATIENT IS A PLEASANT MAN WHO IS A&OX4, FOLLOWING COMMANDS WITH SOME GENERALIZED WEAKNESS. NO PAIN OR DISTRESS NOTED UPON ASSESEMENT. VSS.SOME HYPERTENSION AT START OF SHIFT RESOLVED WITH PRN HYDRALAZINE. NSR. ON 8L NC SATING HIGH 90'S ALL SHIFT. COARSE DIM BREATH SOUNDS THROUGHOUT. TOLERATING SOFT BITES DIET BUT NOT MUCH OF AN APPETITE. ENCOURAGIN ORAL IN INTAKE. ENRIQUE PATENT DRAINING TO GRAVITY. BOWEL REGIMEN GIVEN AND INFORMED PATIENT TO LET RN KNOW IF BECOMES UNCOMFORTABLE AND CAN GET ADDITIONAL INTERVENTIONS. HYPOACTIVE BOWEL SOUNDS. BEDREST AND Q2H TURNS. NO ACUTE CONCERNS AT THIS TIME WILL CONTINUE TO MONITOR UNTIL REPORT GIVEN TO DAYSHIFT RN.
--- NOTE | 2021-04-28 13:24 | NUR ---
[id number]: SAFE HANDOFF REC'D, ASSUMED CARE OF PT. PT RESTING IN BED, ON 8LO2 VIA NC, DENIES PAIN/DISCOMFORT, BED IN LOW LOCKED POSITION. [id number]: PT EATING BREAKFAST IN BED, NURSING ASSESSMENT COMPLETED, AM MEDS ADMINISTERED, ENRIQUE CATH DRAINING CLEAR LUIS MANUEL COLORED URINE. [id number]: PT EATING LUNCH, 4 UNITS OF LISPRO INSULIN GIVEN PER SLIDING SCALE ORDER, PT WITH NEW ORDER TO DC TELE AND MAY BE MEDICAL STATUS. 1320: REPORT GIVEN TO LOPEZ IBRAHIM, PT READY TO TRANSFER TO MEDICAL BED 314.
--- NOTE | 2021-04-28 19:21 | NUR ---
THE PATIENT WAS TRANSFERRED TO THE [facility] FLOOR VIA BED. HE IS ALERT AND ORIENTED X 4 . DENIES PAIN. HE IS ON 8 L OF O2 WITH SAT 92 -945. HE IS NOT IN IN ACUTE DISTRESS THIS SHIFT. HE IS VERY PLEASANT AND COOPERATIVE. B/P WAS 94/77 AT APPRX AT 1800. THE PATIENT DENIED ANY ADVERSE SYMPTOMS. HE WAS ALERT AND WATCHING TV. DR ROBERTS WAS NOTIFIED AND ORDERS WERE GIVEN TO MONITOR.
--- NOTE | 2021-04-29 04:22 | NUR ---
SHIFT SUMMARY ADMITTED FOR COVID+/ARF. FULL CODE. POWERGLIDE IN RUE. O2 - 8 LPM VIA HIGH FLOW NC. BP'S HAVE BEEN SOFT (90'S SBP). ENRIQUE IN PLACE. DYSPHAGIA PRECAUTIONS. PHYSICAL THERAPY WILL EVALUATE AND WORK WITH PT TODAY.
[2021-04-29 05:19] LABS: BASOPHILS ABSOLUTE AUTO 0.03 K/mm3 (0.00-0.23); BASOPHILS PERCENT AUTO 0 % (0-2); EOSINOPHILS PERCENT AUTO 0 % (0-6); Hemoglobin 14.2 g/dL (13.5-17.5); IMMATURE GRAN ABSOLUTE AUTO 0.41 K/mm3 (0.00-0.10); IMMATURE GRAN PERCENT AUTO 3 % (0-1); LYMPHOCYTES ABSOLUTE AUTO 0.61 K/mm3 (0.84-5.20); LYMPHOCYTES PERCENT AUTO 5 % (21-46); MONOCYTES ABSOLUTE AUTO 0.78 K/mm3 (0.16-1.47); MONOCYTES PERCENT AUTO 6 % (4-13); Mean Corpuscular HGB 32.2 pg (26.0-34.0); Mean Corpuscular HGB Conc 32.3 g/dL (31.5-36.5); Mean Corpuscular Volume 100 fL (80-100); Mean Platelet Volume 12.3 fL (9.1-12.4); NEUTROPHILS ABSOLUTE AUTO 10.95 K/mm3 (1.96-9.15); NEUTROPHILS PERCENT AUTO 86 % (41-73); Platelet Count 147 K/mm3 (150-400); RDW Coefficient Variation 13.4 % (11.7-14.2); RDW Standard Deviation 49.2 fL (35.1-46.3); Red Blood Cell Count 4.41 M/mm3 (4.30-5.90); White Blood Cell Count 12.78 K/mm3 (4.00-11.30)
[2021-04-29 05:53] LABS: Albumin, Blood 2.5 g/dL (3.4-5.0); Albumin/Globulin Ratio 0.6 (0.8-1.8); Bun/Creatinine Ratio 41.5 (12.0-20.0); Calcium, Blood 7.9 mg/dL (8.5-10.1); Creatinine, Blood 1.64 mg/dL (0.60-1.20); Globulin, Blood 3.9 g/dL (2.2-4.0); Potassium, Blood 5.1 mmol/L (3.5-5.5); Total Protein, Blood 6.4 g/dL (6.4-8.2)
[2021-04-29 07:05] LABS: C-REACTIVE PROTEIN, EXT RANGE 0.603 mg/dL (0.000-0.300)
--- NOTE | 2021-04-29 18:33 | NUR ---
PT IS ALERT AND ORIENTED X 4. HE APPEARS TO BE RESTING WELL TODAY. HE DENIES PAIN. CALM AND VERY COOPERATIVE. HIS O2 WAS DECREASED FROM 8L TO 7L NC AND HAS TOLERATED THE CHANGE WILL. HE HAS BEEN OOB WITH PT TODAY. HE IS ENCOURAGED TO GET OOB TO CHAIR AND AGREED TO GET OOB IN AM. DRSG WAS CHANGED TO LEFT ANKLE AND LEFT FOOT ORDERED. HE TOLERATED PROCEDURE WELL. SBP IN UPPER 90'S TO LOW 100'S. HE DENIES ADVERSE SYMPTOMS.
[2021-04-30 05:25] LABS: BASOPHILS ABSOLUTE AUTO 0.02 K/mm3 (0.00-0.23); BASOPHILS PERCENT AUTO 0 % (0-2); EOSINOPHILS PERCENT AUTO 0 % (0-6); Hemoglobin 13.8 g/dL (13.5-17.5); IMMATURE GRAN ABSOLUTE AUTO 0.22 K/mm3 (0.00-0.10); IMMATURE GRAN PERCENT AUTO 2 % (0-1); LYMPHOCYTES ABSOLUTE AUTO 0.49 K/mm3 (0.84-5.20); LYMPHOCYTES PERCENT AUTO 5 % (21-46); MONOCYTES PERCENT AUTO 4 % (4-13); Mean Corpuscular HGB Conc 32.1 g/dL (31.5-36.5); Mean Corpuscular Volume 100 fL (80-100); Mean Platelet Volume 12.9 fL (9.1-12.4); NEUTROPHILS ABSOLUTE AUTO 9.51 K/mm3 (1.96-9.15); NEUTROPHILS PERCENT AUTO 89 % (41-73); Platelet Count 140 K/mm3 (150-400); RDW Coefficient Variation 13.3 % (11.7-14.2); RDW Standard Deviation 49.1 fL (35.1-46.3); Red Blood Cell Count 4.31 M/mm3 (4.30-5.90); White Blood Cell Count 10.64 K/mm3 (4.00-11.30)
[2021-04-30 06:02] LABS: Magnesium, Blood 3.2 mg/dL (1.6-2.4)
[2021-04-30 06:03] LABS: Albumin, Blood 2.5 g/dL (3.4-5.0); Albumin/Globulin Ratio 0.7 (0.8-1.8); Bilirubin, Total 0.9 mg/dL (0.1-1.0); Bun/Creatinine Ratio 47.7 (12.0-20.0); Creatinine, Blood 1.51 mg/dL (0.60-1.20); Globulin, Blood 3.8 g/dL (2.2-4.0); Potassium, Blood 5.6 mmol/L (3.5-5.5); Total Protein, Blood 6.3 g/dL (6.4-8.2)
--- NOTE | 2021-04-30 06:41 | NUR ---
PATIENT HAD A RESTFUL NIGHT. NO COMPLAINTS OF DISCOMFORT OR INCREASING SOB. HE REMAINS ON 6 LITERS. NO CHANGES NOTED
[2021-04-30 16:44] LABS: Albumin, Blood 2.7 g/dL (3.4-5.0); Albumin/Globulin Ratio 0.6 (0.8-1.8); Bilirubin, Total 1.3 mg/dL (0.1-1.0); Bun/Creatinine Ratio 45.4 (12.0-20.0); Calcium, Blood 8.6 mg/dL (8.5-10.1); Creatinine, Blood 1.63 mg/dL (0.60-1.20); Globulin, Blood 4.6 g/dL (2.2-4.0); Potassium, Blood 5.2 mmol/L (3.5-5.5); Total Protein, Blood 7.3 g/dL (6.4-8.2)
--- NOTE | 2021-04-30 18:21 | NUR ---
MR. HAO GAVIN IS ALERT AND ORIENTED X 3. HE DENIES PAIN. VS WNL. HIS O2 WAS DECREASED FROM 6L TO 5L NC. HE HAS TOLERATED THE CHANGE WELL. HE HAS BEEN UP TO THE CHAIR SINCE LUNCH. ACTIVITY WITH STANDBY 2 PERSON ASSIST, FRONT WHEEL WALKER TO BEDSIDE COMMODE AND CHAIR. MIRALAX THIS AM AND LARGE BM THIS AFTERNOON APPROX 1500. STOOL WAS BROWN AND SOFT. ENRIQUE CATH REMOVED AT 1230. HE HAS NOT VOID. HE TOLERATED REMOVAL OF ENRIQUE WITHOUT DIFFICULTY. DRSG CHANGED TO CROW. PLAN TO DISCHARGE TO SKILL FACILITY TOMORROW. HIS DIET WAS CHANGE TO PUREED DIET WITH FEEDING ASSISTANCE THIS AFTERNOON. HE HAD AN UNEVENTFUL EVENING.
--- NOTE | 2021-05-01 06:17 | NUR ---
PATIENT IS ALERT AND ORIENTED WITH INTERMITTED CONFUSION. PATIENT WAS ADMITTED FOR COVID, DYSPNEA AND GENERALIZED WEAKNESS. PATIENT GETS SOB WITH EXERSION, ON 02 AT 5L, O2 SAT 93 - 95%. PATIENT IS ON MIRALAX FOR CONSTIPATION, PATIENT WAS CONTINENT OF LARGE BM. PATIENT WAS BLADDER SCAN FOR 400CC. PATIENT MISSED THE URINAL WHILE IN USE AND VOIDED LARGE AMOUNT OF URINE IN BED. PATIENT WAS PLEASANT AND COOPERATIVE. POWERGLIDE FUSHED WELL, BLOOD DRAW VIA POWERGLIDE THIS MORNING.
[2021-05-01 06:41] LABS: BASOPHILS ABSOLUTE AUTO 0.01 K/mm3 (0.00-0.23); BASOPHILS PERCENT AUTO 0 % (0-2); EOSINOPHILS PERCENT AUTO 0 % (0-6); Hematocrit 41.8 % (37.0-53.0); Hemoglobin 13.6 g/dL (13.5-17.5); IMMATURE GRAN ABSOLUTE AUTO 0.12 K/mm3 (0.00-0.10); IMMATURE GRAN PERCENT AUTO 1 % (0-1); LYMPHOCYTES PERCENT AUTO 5 % (21-46); MONOCYTES ABSOLUTE AUTO 0.51 K/mm3 (0.16-1.47); MONOCYTES PERCENT AUTO 5 % (4-13); Mean Corpuscular HGB 32.4 pg (26.0-34.0); Mean Corpuscular HGB Conc 32.5 g/dL (31.5-36.5); Mean Corpuscular Volume 100 fL (80-100); NEUTROPHILS ABSOLUTE AUTO 9.03 K/mm3 (1.96-9.15); NEUTROPHILS PERCENT AUTO 89 % (41-73); Platelet Count 111 K/mm3 (150-400); RDW Coefficient Variation 13.5 % (11.7-14.2); White Blood Cell Count 10.17 K/mm3 (4.00-11.30)
[2021-05-01 06:53] LABS: International Normalized Ratio 0.99; Prothrombin Time Results 10.7 Sec (9.7-11.5)
[2021-05-01 07:20] LABS: Mean Platelet Volume 12.9 fL (9.1-12.4)
[2021-05-01 08:39] LABS: Albumin, Blood 2.6 g/dL (3.4-5.0); Albumin/Globulin Ratio 0.7 (0.8-1.8); Bun/Creatinine Ratio 45.3 (12.0-20.0); Calcium, Blood 8.2 mg/dL (8.5-10.1); Creatinine, Blood 1.7 mg/dL (0.60-1.20); Globulin, Blood 3.9 g/dL (2.2-4.0); Potassium, Blood 5.6 mmol/L (3.5-5.5); Total Protein, Blood 6.5 g/dL (6.4-8.2)
--- NOTE | 2021-05-01 16:29 | NUR ---
SHIFT SUMMARY PT UP TO CHAIR BY THERAPY. PT STATES HE WOULD LIKE TO REMAIN IN CHAIR UNTIL AFTER DINNER. PT SATING IN THE MID 90S ON 5L O2 VIA NC. DR. ADAMES CONSULTED WITH GI AND SPOKE DIRECTLY WITH DR. CUMMINS ABOUT THE PT. ST IN TO WORK WITH PT AND ADVANCED HIM TO [facility] SOFT DIET. BED BATH COMPLETED TODAY. NO OTHER ACUTE CHANGES IN ASSESSMENT AT THIS TIME. VS REVIEWED. PT CURRENTLY UP IN RECLINER. CALL LIGHT IN REACH. DR. ADAMES NOTIFIED THAT THE PT'S IS REQUESTING A PHONE CALL FROM THE
[2021-05-02 05:35] LABS: BASOPHILS ABSOLUTE AUTO 0.01 K/mm3 (0.00-0.23); BASOPHILS PERCENT AUTO 0 % (0-2); EOSINOPHILS PERCENT AUTO 0 % (0-6); Hematocrit 40.8 % (37.0-53.0); Hemoglobin 13.1 g/dL (13.5-17.5); IMMATURE GRAN ABSOLUTE AUTO 0.08 K/mm3 (0.00-0.10); IMMATURE GRAN PERCENT AUTO 1 % (0-1); LYMPHOCYTES ABSOLUTE AUTO 0.53 K/mm3 (0.84-5.20); LYMPHOCYTES PERCENT AUTO 6 % (21-46); MONOCYTES ABSOLUTE AUTO 0.67 K/mm3 (0.16-1.47); MONOCYTES PERCENT AUTO 7 % (4-13); Mean Corpuscular HGB Conc 32.1 g/dL (31.5-36.5); Mean Corpuscular Volume 100 fL (80-100); Mean Platelet Volume 12.5 fL (9.1-12.4); NEUTROPHILS ABSOLUTE AUTO 8.12 K/mm3 (1.96-9.15); NEUTROPHILS PERCENT AUTO 86 % (41-73); Platelet Count 121 K/mm3 (150-400); RDW Coefficient Variation 13.3 % (11.7-14.2); RDW Standard Deviation 48.9 fL (35.1-46.3); White Blood Cell Count 9.41 K/mm3 (4.00-11.30)
--- NOTE | 2021-05-02 06:07 | NUR ---
PATIENT A/O, PLEASANT AND COOPERATIVE.02 SAT 95% ON 6L VIA HIGH FLOW NC. DENIES SOB OR PAIN. VOIDED X2 IN THE URINAL AND WAS INCONTINENT X1. SLEPT WELL ALL NIGHT. CONTINUE ON MECHANICAL SOFT DIET. V/S 98.1, 56, 16, 116/55, 02 95%. WILL CONTINUE TO MONITOR AND ENCOURAGE.
[2021-05-02 06:23] LABS: Albumin, Blood 2.6 g/dL (3.4-5.0); Albumin/Globulin Ratio 0.7 (0.8-1.8); Bilirubin, Total 0.9 mg/dL (0.1-1.0); Bun/Creatinine Ratio 46.7 (12.0-20.0); Calcium, Blood 8.5 mg/dL (8.5-10.1); Creatinine, Blood 1.84 mg/dL (0.60-1.20); Globulin, Blood 3.8 g/dL (2.2-4.0); Potassium, Blood 5.8 mmol/L (3.5-5.5); Total Protein, Blood 6.4 g/dL (6.4-8.2)
[2021-05-02 08:10] LABS: HBSAG SCREEN Negative (Negative); HEP A AB, IGM Negative (Negative); HEP B CORE AB, IGM Negative (Negative); HEP C VIRUS AB <0.1 (0.0-0.9)
[2021-05-02 11:27] LABS: International Normalized Ratio 1.03; Prothrombin Time Results 11.1 Sec (9.7-11.5)
--- NOTE | 2021-05-02 11:53 | NUR ---
st advanced patient to a mechanical diet, pt in working with patient now, oob in chair, call light with in reach
--- NOTE | 2021-05-02 13:34 | NUR ---
PATIENTS RESPIRATION INCREASED TO 30, REPORTS FEELING LIGHT HEADED AND DIZZY, BACK TO BED FROM CHAIR, ATTENDS CHANGED, RT TX NOW
--- NOTE | 2021-05-02 14:19 | NUR ---
Per chart review with Dr. Ambriz, pt's liver labs have steadily increase since course of stay so GI has been asked to consult. Plan for d/c has been postpone due to pt may needing liver biopsy. -dina
--- NOTE | 2021-05-02 16:04 | NUR ---
REPORTED TO PATIENTS MICHELLE [phone]
--- NOTE | 2021-05-02 18:25 | NUR ---
PATIENT ALERT AND ORIENTED, CONFUSED AT TIMES TODAY, VS REVEIWED, UPDATED , PATIENT AND WANT DR ZACARIAS TO EXPLAIN ALL MEDICATIONS, CALL LIGHT WITH IN REACH, WCTM
[2021-05-03 05:45] LABS: BASOPHILS ABSOLUTE AUTO 0.01 K/mm3 (0.00-0.23); BASOPHILS PERCENT AUTO 0 % (0-2); EOSINOPHILS PERCENT AUTO 0 % (0-6); Hematocrit 38.7 % (37.0-53.0); Hemoglobin 12.6 g/dL (13.5-17.5); IMMATURE GRAN ABSOLUTE AUTO 0.07 K/mm3 (0.00-0.10); IMMATURE GRAN PERCENT AUTO 1 % (0-1); LYMPHOCYTES ABSOLUTE AUTO 0.37 K/mm3 (0.84-5.20); LYMPHOCYTES PERCENT AUTO 4 % (21-46); MONOCYTES PERCENT AUTO 6 % (4-13); Mean Corpuscular HGB 32.1 pg (26.0-34.0); Mean Corpuscular HGB Conc 32.6 g/dL (31.5-36.5); Mean Corpuscular Volume 99 fL (80-100); NEUTROPHILS PERCENT AUTO 89 % (41-73); RDW Coefficient Variation 13.4 % (11.7-14.2); RDW Standard Deviation 49.1 fL (35.1-46.3); Red Blood Cell Count 3.93 M/mm3 (4.30-5.90); White Blood Cell Count 8.45 K/mm3 (4.00-11.30)
[2021-05-03 05:54] LABS: Mean Platelet Volume 13.3 fL (9.1-12.4); Platelet Count 93 K/mm3 (150-400)
--- NOTE | 2021-05-03 05:54 | NUR ---
SHIFT SUMMARY PATIENT ALERT AND ORIENTED WITH OCCASIONAL CONFUSION. NO COMPLAINTS OF PAIN, IS NOTED TO BE SHORT OF BREATH AT REST. NO ACUTE ISSUES NOTED OVERNIGHT. CALL LIGHT WITHIN REACH. REPORT GIVEN TO ONCOMING RN.
[2021-05-03 06:23] LABS: Magnesium, Blood 3.1 mg/dL (1.6-2.4)
[2021-05-03 06:30] LABS: Albumin, Blood 2.5 g/dL (3.4-5.0); Albumin/Globulin Ratio 0.7 (0.8-1.8); Bun/Creatinine Ratio 51.4 (12.0-20.0); Calcium, Blood 8.1 mg/dL (8.5-10.1); Creatinine, Blood 1.73 mg/dL (0.60-1.20); Globulin, Blood 3.6 g/dL (2.2-4.0); Phosphorus, Blood 4.3 mg/dL (2.5-4.9); Potassium, Blood 6.4 mmol/L (3.5-5.5); Total Protein, Blood 6.1 g/dL (6.4-8.2)
--- NOTE | 2021-05-03 08:25 | NUR ---
MAKES NEEDS KNOWN, REPOSITIONED IN BED, DR ADAMES ROUNDED, DR ADAMES TO FOLLOW UP WITH PATIENTS , EATING BREAKFAST, K 6.4, MEDICATED WITH HUMILIN R, DEXTROSE, CALCIUM GLUCONATE, TO HAVE LABS DRAWN, CALL LIGHT WITH IN REACH
--- NOTE | 2021-05-03 10:27 | NUR ---
POWER GLIDE BRITTA DRESSING CHANGED
--- NOTE | 2021-05-03 10:49 | NUR ---
PT HERE TO WORK WITH PATIENT
--- NOTE | 2021-05-03 10:55 | NUR ---
Per chart review with Dr. Ambriz, pt's discharge plan is delayed due to upward trending liver enzymes. The increase has slowed but they are still increasing. GI consulted on pt yesterday and ordered labwork that is still pending. GI would like the pt to stay incase they need to do a liver biopsy. -dina
[2021-05-03 11:14] LABS: Prothrombin Time Results 10.8 Sec (9.7-11.5)
[2021-05-03 11:16] LABS: Bun/Creatinine Ratio 49.4 (12.0-20.0); Calcium, Blood 8.4 mg/dL (8.5-10.1); Creatinine, Blood 1.7 mg/dL (0.60-1.20); Potassium, Blood 5.4 mmol/L (3.5-5.5)
--- NOTE | 2021-05-03 11:47 | NUR ---
OT IN WORKING WITH PATIENT
--- NOTE | 2021-05-03 18:23 | NUR ---
makes needs known, reviewed vs, forgetful and confused at times, alert and oriented to self, place, time, thing. drsg to ankle changed, patient tolerated with ease, no change in ls, wctm
[2021-05-04 05:32] LABS: BASOPHILS PERCENT AUTO 0 % (0-2); EOSINOPHILS ABSOLUTE AUTO 0.02 K/mm3 (0.00-0.68); EOSINOPHILS PERCENT AUTO 0 % (0-6); Hemoglobin 12.1 g/dL (13.5-17.5); IMMATURE GRAN ABSOLUTE AUTO 0.05 K/mm3 (0.00-0.10); IMMATURE GRAN PERCENT AUTO 1 % (0-1); LYMPHOCYTES ABSOLUTE AUTO 0.34 K/mm3 (0.84-5.20); LYMPHOCYTES PERCENT AUTO 4 % (21-46); MONOCYTES ABSOLUTE AUTO 0.53 K/mm3 (0.16-1.47); MONOCYTES PERCENT AUTO 6 % (4-13); Mean Corpuscular HGB 32.4 pg (26.0-34.0); Mean Corpuscular HGB Conc 32.7 g/dL (31.5-36.5); Mean Corpuscular Volume 99 fL (80-100); Mean Platelet Volume 12.6 fL (9.1-12.4); NEUTROPHILS ABSOLUTE AUTO 7.62 K/mm3 (1.96-9.15); NEUTROPHILS PERCENT AUTO 89 % (41-73); Platelet Count 101 K/mm3 (150-400); RDW Coefficient Variation 13.7 % (11.7-14.2); RDW Standard Deviation 49.4 fL (35.1-46.3); Red Blood Cell Count 3.73 M/mm3 (4.30-5.90); White Blood Cell Count 8.56 K/mm3 (4.00-11.30)
[2021-05-04 06:08] LABS: Albumin, Blood 2.3 g/dL (3.4-5.0); Albumin/Globulin Ratio 0.6 (0.8-1.8); Bilirubin, Total 0.8 mg/dL (0.1-1.0); Bun/Creatinine Ratio 50.9 (12.0-20.0); Calcium, Blood 8.3 mg/dL (8.5-10.1); Creatinine, Blood 1.69 mg/dL (0.60-1.20); Globulin, Blood 3.6 g/dL (2.2-4.0); Magnesium, Blood 3.1 mg/dL (1.6-2.4); Phosphorus, Blood 4.2 mg/dL (2.5-4.9); Potassium, Blood 5.6 mmol/L (3.5-5.5); Total Protein, Blood 5.9 g/dL (6.4-8.2)
--- NOTE | 2021-05-04 06:20 | NUR ---
SHIFT SUMMARY PATIENT ALERT AND ORIENTED WITH OCCASIONAL CONFUSION. HAD NO COMPLAINTS OF PAIN OR SHORTNESS OF BREATH. ON 6 LITERS O2 VIA NC. CALL LIGHT WITHIN REACH. REPORT GIVEN TO ONCOMING RN.
[2021-05-04 11:19] LABS: International Normalized Ratio 0.97; Prothrombin Time Results 10.5 Sec (9.7-11.5)
--- NOTE | 2021-05-04 14:36 | NUR ---
DRESSING CHANGE ON FOOT. PT RAMON WELL.
--- NOTE | 2021-05-04 18:31 | NUR ---
PT QUITE TALKATIVE TODAY. DENIES PAIN. O2 AT 6L TODAY. DR STARTED ON FLUIDS TODAY. HAS BEEN IN CHAIR MUCH OF TODAY. NO NEW CONCERNS NOTED TODAY. DID CHANGE FOOT WOUND TODAY. BED IN LOW POSITIOIN CALL LITE IN REACH CALLS APROP
--- NOTE | 2021-05-05 05:03 | NUR ---
N0 SIGNIFICANT EVENTS OCCURRED OVERNIGHT; PATIENT INCONTINENT BUT ENCOURAGED TO USE URINAL THAT IS WITHIN REACH. NO VISIBLE SIGNS OF ANY DISTRESS. ON 6 LITERS OF OXYGEN. DENIES PAIN. DENIES NAUSEA.
[2021-05-05 05:31] LABS: BASOPHILS PERCENT AUTO 0 % (0-2); EOSINOPHILS ABSOLUTE AUTO 0.01 K/mm3 (0.00-0.68); EOSINOPHILS PERCENT AUTO 0 % (0-6); Hematocrit 35.9 % (37.0-53.0); Hemoglobin 11.5 g/dL (13.5-17.5); IMMATURE GRAN ABSOLUTE AUTO 0.05 K/mm3 (0.00-0.10); IMMATURE GRAN PERCENT AUTO 1 % (0-1); LYMPHOCYTES ABSOLUTE AUTO 0.48 K/mm3 (0.84-5.20); LYMPHOCYTES PERCENT AUTO 7 % (21-46); MONOCYTES ABSOLUTE AUTO 0.44 K/mm3 (0.16-1.47); MONOCYTES PERCENT AUTO 7 % (4-13); Mean Corpuscular HGB 32.2 pg (26.0-34.0); Mean Corpuscular Volume 101 fL (80-100); Mean Platelet Volume 12.1 fL (9.1-12.4); NEUTROPHILS ABSOLUTE AUTO 5.47 K/mm3 (1.96-9.15); NEUTROPHILS PERCENT AUTO 85 % (41-73); Platelet Count 87 K/mm3 (150-400); RDW Coefficient Variation 13.6 % (11.7-14.2); RDW Standard Deviation 50.6 fL (35.1-46.3); Red Blood Cell Count 3.57 M/mm3 (4.30-5.90); White Blood Cell Count 6.45 K/mm3 (4.00-11.30)
[2021-05-05 06:11] LABS: Albumin, Blood 2.2 g/dL (3.4-5.0); Albumin/Globulin Ratio 0.6 (0.8-1.8); Bilirubin, Total 0.8 mg/dL (0.1-1.0); Bun/Creatinine Ratio 48.6 (12.0-20.0); Calcium, Blood 8.1 mg/dL (8.5-10.1); Creatinine, Blood 1.42 mg/dL (0.60-1.20); Globulin, Blood 3.6 g/dL (2.2-4.0); Phosphorus, Blood 3.5 mg/dL (2.5-4.9); Potassium, Blood 5.1 mmol/L (3.5-5.5); Total Protein, Blood 5.8 g/dL (6.4-8.2)
[2021-05-05 11:27] LABS: International Normalized Ratio 0.98; Prothrombin Time Results 10.6 Sec (9.7-11.5)
[2021-05-05 14:09] LABS: CMV QUANT DNA PCR (PLASMA) Negative (Negative)
--- NOTE | 2021-05-05 18:21 | NUR ---
Shift Summary A/Ox3, pleasant and cooperative. Up in chair for most of the day. Oxygen at 2L via NC, sats at rest >93%, with activity 90%. No acute concerns, VSS, afebrile. Appetite is good, PO fluid intake is minimal. WCTM.
[2021-05-06 04:54] LABS: BASOPHILS ABSOLUTE AUTO 0.01 K/mm3 (0.00-0.23); BASOPHILS PERCENT AUTO 0 % (0-2); EOSINOPHILS ABSOLUTE AUTO 0.05 K/mm3 (0.00-0.68); EOSINOPHILS PERCENT AUTO 1 % (0-6); Hematocrit 36.1 % (37.0-53.0); Hemoglobin 11.4 g/dL (13.5-17.5); IMMATURE GRAN ABSOLUTE AUTO 0.04 K/mm3 (0.00-0.10); IMMATURE GRAN PERCENT AUTO 1 % (0-1); LYMPHOCYTES ABSOLUTE AUTO 0.44 K/mm3 (0.84-5.20); LYMPHOCYTES PERCENT AUTO 6 % (21-46); MONOCYTES ABSOLUTE AUTO 0.47 K/mm3 (0.16-1.47); MONOCYTES PERCENT AUTO 7 % (4-13); Mean Corpuscular HGB 31.9 pg (26.0-34.0); Mean Corpuscular HGB Conc 31.6 g/dL (31.5-36.5); Mean Corpuscular Volume 101 fL (80-100); NEUTROPHILS ABSOLUTE AUTO 5.92 K/mm3 (1.96-9.15); NEUTROPHILS PERCENT AUTO 86 % (41-73); RDW Coefficient Variation 13.6 % (11.7-14.2); RDW Standard Deviation 50.4 fL (35.1-46.3); Red Blood Cell Count 3.57 M/mm3 (4.30-5.90); White Blood Cell Count 6.93 K/mm3 (4.00-11.30)
--- NOTE | 2021-05-06 04:55 | NUR ---
NO ACUTE CHANGES OR SIGNIFICANT EVENTS OCCURRED OVERNIGH. OXYGEN ON 3 LITERS VIA NASAL CANNULA THROUGHOUT NIGHT. OXYGEN LEVELS MAINTAINED IN UPPER 90S.
[2021-05-06 04:58] LABS: Mean Platelet Volume 12.9 fL (9.1-12.4); Platelet Count 65 K/mm3 (150-400)
[2021-05-06 05:12] LABS: Magnesium, Blood 2.6 mg/dL (1.6-2.4)
[2021-05-06 05:55] LABS: Albumin/Globulin Ratio 0.5 (0.8-1.8); Alk Phos 276 U/L (50-136); Anion Gap 4 mmol/L (6-16); Aspartate Aminotrans (AST/SGOT 446 U/L (12-37); Bilirubin, Total 0.8 mg/dL (0.1-1.0); Blood Urea Nitrogen 52 mg/dL (8-24); Bun/Creatinine Ratio 45.2 (12.0-20.0); CO2, Blood 17 mmol/L (21-32); Calcium, Blood 7.9 mg/dL (8.5-10.1); Chloride, Blood 117 mmol/L (98-108); Creatinine, Blood 1.15 mg/dL (0.60-1.20); Globulin, Blood 3.8 g/dL (2.2-4.0); Glomerular Filtration Rate >60 (60-); Glucose, Blood 102 mg/dL (70-99); Phosphorus, Blood 3.1 mg/dL (2.5-4.9); Potassium, Blood 5.5 mmol/L (3.5-5.5); Sodium, Blood 138 mmol/L (136-145); Total Protein, Blood 5.8 g/dL (6.4-8.2)
[2021-05-06 06:00] LABS: Alanine Aminotransfer (ALT/SGP 1238 U/L (12-78)
[2021-05-06 11:29] LABS: Prothrombin Time Results 10.5 Sec (9.7-11.5)
--- NOTE | 2021-05-06 14:16 | NUR ---
LIZA IVY PER T.O. FROM DR. ADAMES, LIZA IVY.
--- NOTE | 2021-05-06 18:02 | NUR ---
Shift Summary Medihoney applied to wounds and dressing changed. Dressing to ankle has moderate serous drainage, to toe has scant ss. Had PT session. Desat with RA with activity to low-mid 80's, required 2L to recover to 90%. 2L at rest, sats stayed above 90%. Tele: SR PAC first degree BBB @ 74. Medicated once for back/buttock pain with good effect. Up in chair most of the day. To bedside commode x 1p SBA FWW. Good appetite. NS d/c. Still having urgency, frequency, and difficutly urinating.
--- NOTE | 2021-05-07 04:58 | NUR ---
NO ACUTE CHANGES OR SIGNIFICANT EVENTS OCCURRED OVERNIGHT. PATIENT OXYGEN LEVEL MAINTAINED GREATER THAN 90% ON 2LITERS.
[2021-05-07 05:19] LABS: BASOPHILS PERCENT AUTO 0 % (0-2); EOSINOPHILS ABSOLUTE AUTO 0.06 K/mm3 (0.00-0.68); EOSINOPHILS PERCENT AUTO 1 % (0-6); Hematocrit 34.9 % (37.0-53.0); IMMATURE GRAN ABSOLUTE AUTO 0.03 K/mm3 (0.00-0.10); IMMATURE GRAN PERCENT AUTO 0 % (0-1); LYMPHOCYTES ABSOLUTE AUTO 0.56 K/mm3 (0.84-5.20); LYMPHOCYTES PERCENT AUTO 7 % (21-46); MONOCYTES ABSOLUTE AUTO 0.46 K/mm3 (0.16-1.47); MONOCYTES PERCENT AUTO 6 % (4-13); Mean Corpuscular HGB 31.6 pg (26.0-34.0); Mean Corpuscular HGB Conc 31.5 g/dL (31.5-36.5); Mean Corpuscular Volume 100 fL (80-100); Mean Platelet Volume 12.8 fL (9.1-12.4); NEUTROPHILS ABSOLUTE AUTO 6.65 K/mm3 (1.96-9.15); NEUTROPHILS PERCENT AUTO 86 % (41-73); Platelet Count 70 K/mm3 (150-400); RDW Coefficient Variation 13.9 % (11.7-14.2); RDW Standard Deviation 50.4 fL (35.1-46.3); Red Blood Cell Count 3.48 M/mm3 (4.30-5.90); White Blood Cell Count 7.76 K/mm3 (4.00-11.30)
[2021-05-07 05:56] LABS: Albumin, Blood 2.1 g/dL (3.4-5.0); Albumin/Globulin Ratio 0.6 (0.8-1.8); Alk Phos 276 U/L (50-136); Anion Gap 4 mmol/L (6-16); Aspartate Aminotrans (AST/SGOT 360 U/L (12-37); Bilirubin, Total 0.9 mg/dL (0.1-1.0); Blood Urea Nitrogen 39 mg/dL (8-24); Bun/Creatinine Ratio 36.1 (12.0-20.0); CO2, Blood 21 mmol/L (21-32); Calcium, Blood 8.3 mg/dL (8.5-10.1); Chloride, Blood 115 mmol/L (98-108); Creatinine, Blood 1.08 mg/dL (0.60-1.20); Globulin, Blood 3.7 g/dL (2.2-4.0); Glomerular Filtration Rate >60 (60-); Glucose, Blood 91 mg/dL (70-99); Magnesium, Blood 2.4 mg/dL (1.6-2.4); Phosphorus, Blood 2.6 mg/dL (2.5-4.9); Potassium, Blood 5.2 mmol/L (3.5-5.5); Sodium, Blood 140 mmol/L (136-145); Total Protein, Blood 5.8 g/dL (6.4-8.2)
[2021-05-07 06:15] LABS: Alanine Aminotransfer (ALT/SGP 1058 U/L (12-78)
[2021-05-07 13:46] LABS: International Normalized Ratio 1.01; Prothrombin Time Results 10.6 Sec (9.7-11.5)
--- NOTE | 2021-05-07 17:56 | NUR ---
SHIFT SUMMARY TITRATED TO ROOM AIR. UP IN CHAIR ALL OF SHIFT. BM TODAY. INTERMITTENT NAUSEA THROUGHOUT SHIFT; NO EMESIS, OCCASIONAL WRETCHING.
--- NOTE | 2021-05-08 03:24 | NUR ---
NO SIGNIFICANT EVENT OR ACUTE CHANGES NOTED. OXYGEN MAINTAINING AT GREATER THAN 92% ON 2LITERS VIA NASAL CANNULA. NAUSEA HAS IMPROVED.
[2021-05-08 05:09] LABS: BASOPHILS ABSOLUTE AUTO 0.01 K/mm3 (0.00-0.23); BASOPHILS PERCENT AUTO 0 % (0-2); EOSINOPHILS ABSOLUTE AUTO 0.03 K/mm3 (0.00-0.68); EOSINOPHILS PERCENT AUTO 0 % (0-6); Hematocrit 34.9 % (37.0-53.0); IMMATURE GRAN ABSOLUTE AUTO 0.04 K/mm3 (0.00-0.10); IMMATURE GRAN PERCENT AUTO 0 % (0-1); LYMPHOCYTES ABSOLUTE AUTO 0.51 K/mm3 (0.84-5.20); LYMPHOCYTES PERCENT AUTO 5 % (21-46); MONOCYTES ABSOLUTE AUTO 0.46 K/mm3 (0.16-1.47); MONOCYTES PERCENT AUTO 5 % (4-13); Mean Corpuscular HGB 31.9 pg (26.0-34.0); Mean Corpuscular HGB Conc 31.5 g/dL (31.5-36.5); Mean Corpuscular Volume 101 fL (80-100); Mean Platelet Volume 12.3 fL (9.1-12.4); NEUTROPHILS ABSOLUTE AUTO 8.47 K/mm3 (1.96-9.15); NEUTROPHILS PERCENT AUTO 89 % (41-73); Platelet Count 66 K/mm3 (150-400); RDW Coefficient Variation 13.9 % (11.7-14.2); Red Blood Cell Count 3.45 M/mm3 (4.30-5.90); White Blood Cell Count 9.52 K/mm3 (4.00-11.30)
[2021-05-08 05:26] LABS: Alanine Aminotransfer (ALT/SGP 909 U/L (12-78); Albumin, Blood 2.1 g/dL (3.4-5.0); Albumin/Globulin Ratio 0.5 (0.8-1.8); Alk Phos 263 U/L (50-136); Anion Gap 5 mmol/L (6-16); Aspartate Aminotrans (AST/SGOT 273 U/L (12-37); Bilirubin, Total 1.1 mg/dL (0.1-1.0); Blood Urea Nitrogen 33 mg/dL (8-24); Bun/Creatinine Ratio 28.4 (12.0-20.0); CO2, Blood 21 mmol/L (21-32); Calcium, Blood 8.5 mg/dL (8.5-10.1); Chloride, Blood 111 mmol/L (98-108); Creatinine, Blood 1.16 mg/dL (0.60-1.20); Globulin, Blood 3.9 g/dL (2.2-4.0); Glomerular Filtration Rate >60 (60-); Glucose, Blood 111 mg/dL (70-99); Magnesium, Blood 2.2 mg/dL (1.6-2.4); Potassium, Blood 5.3 mmol/L (3.5-5.5); Sodium, Blood 137 mmol/L (136-145)
[2021-05-08 10:22] LABS: International Normalized Ratio 1.01; Prothrombin Time Results 10.6 Sec (9.7-11.5)
--- NOTE | 2021-05-08 15:05 | NUR ---
Update 05/08/21: manager of investigations Annalise has been involved in patient's care while I have been off the last few days. Per chart review with Dr. Randolph, patient is likely to be appropriate for discharge tomorrow. I spoke with patient's Deyanira to provide updates this afternoon and discuss discharge planning. She would like pt. to return home with HH PT. She did not have a preference for HH providers. I will discuss preference with Christophe and update him as well. Deyanira will be available to pick Christophe up tomorrow morning at 11:30 am. Will scheduled hospital F/U with PCP and GI F/U prior to discharge. Plan to send pt. with discharge letter including appointment dates/times.
--- NOTE | 2021-05-08 19:15 | NUR ---
SHIFT SUMMARY PT A/O X4; PLEASANT AND COOPERATIVE WITH CARE. NO ACUTE CHANGES THIS SHIFT. PT TO DC HOME TOMORROW WITH HOME HEALTH. DC PLANS DISCUSSED WITH WHO IS A FORMER NURSE AND SHE FEELS SHE IS ABLE TO CARE FOR HIM AT HOME. VSS. WILL REPORT TO LORRIE RN.
--- NOTE | 2021-05-08 19:20 | NUR ---
ASSUMED CARE RECEIVED REPORT FROM ALEXANDRIA BARRERA. PT RESTING, IN NAD. NO ACUTE NEEDS ASSESSED AT THIS TIME. CALL LIGHT, POSSESSIONS IN REACH.
[2021-05-09 05:01] LABS: BASOPHILS ABSOLUTE AUTO 0.01 K/mm3 (0.00-0.23); BASOPHILS PERCENT AUTO 0 % (0-2); EOSINOPHILS ABSOLUTE AUTO 0.16 K/mm3 (0.00-0.68); EOSINOPHILS PERCENT AUTO 2 % (0-6); Hematocrit 33.5 % (37.0-53.0); Hemoglobin 10.8 g/dL (13.5-17.5); IMMATURE GRAN ABSOLUTE AUTO 0.02 K/mm3 (0.00-0.10); IMMATURE GRAN PERCENT AUTO 0 % (0-1); LYMPHOCYTES ABSOLUTE AUTO 0.71 K/mm3 (0.84-5.20); LYMPHOCYTES PERCENT AUTO 8 % (21-46); MONOCYTES ABSOLUTE AUTO 0.38 K/mm3 (0.16-1.47); MONOCYTES PERCENT AUTO 5 % (4-13); Mean Corpuscular HGB 31.8 pg (26.0-34.0); Mean Corpuscular HGB Conc 32.2 g/dL (31.5-36.5); Mean Corpuscular Volume 99 fL (80-100); NEUTROPHILS ABSOLUTE AUTO 7.16 K/mm3 (1.96-9.15); NEUTROPHILS PERCENT AUTO 85 % (41-73); Platelet Count 66 K/mm3 (150-400); RDW Coefficient Variation 13.7 % (11.7-14.2); RDW Standard Deviation 49.5 fL (35.1-46.3); White Blood Cell Count 8.44 K/mm3 (4.00-11.30)
[2021-05-09 05:30] LABS: Albumin/Globulin Ratio 0.5 (0.8-1.8); Bun/Creatinine Ratio 27.7 (12.0-20.0); Calcium, Blood 8.5 mg/dL (8.5-10.1); Creatinine, Blood 1.19 mg/dL (0.60-1.20); Globulin, Blood 3.9 g/dL (2.2-4.0); Magnesium, Blood 2.2 mg/dL (1.6-2.4); Phosphorus, Blood 2.8 mg/dL (2.5-4.9); Potassium, Blood 4.9 mmol/L (3.5-5.5); Total Protein, Blood 5.9 g/dL (6.4-8.2)
--- NOTE | 2021-05-09 07:42 | NUR ---
PROGRAM ANALYST SUMMARY PT RESTING, IN NAD. APPEARED TO SLEEP WELL OVERNIGHT; VS REVIEWED,WNL. DENIED PAIN T/O NIGHT. INDEPENDENT IN ROOM. NO ACUTE CONCERNS TO REPORT OVERNIGHT. DENIES NEEDS AT THIS TIME. CALL LIGHT, POSSESSIONS IN REACH, BED IN LOW AND LOCKED POSITION. REPORT GIVEN TO ALEXANDRIA ALTAMIRANO.
[2021-05-09] MEDS ORDERED: MEDIHONEY (10:55)
[2021-05-09] MEDS ORDERED: LOSA50 PO (10:55)
[2021-05-09] MEDS ORDERED: METPRE8 PO (10:59)
[2021-05-09] MEDS ORDERED: XARELTO20 MG PO (11:04)
--- NOTE | 2021-05-09 12:20 | NUR ---
DISCHARGE INSTRUCTIONS COMPLETED AND DISCUSSED WITH PT EXPRESSING UNDERSTANDING. SCRIPTS SENT TO PHARMACY PER DR. MCKEON. TO [facility] VIA W/C WITH SON PICKING HIM UP.
--- NOTE | 2021-05-09 16:58 | NUR ---
Pt. provided with Xarelto 10 mg samples x 14 days. Discharge instructions printed for patient and placed with samples. Highlighted section with details that CBC and CMP needed within 1-2 weeks post discharge. Pt. scheduled for hospital F/U with Dr. Jimenes on 05/14/21 at 3:40pm. I contacted [facility] to schedule F/U visit within 1-2 weeks. Per staff they will put note in to GI specialist to review for appointment work-in need. Requested that they contacted patient's Deyanira directly to discuss scheduling. Provided pt. with discharge letter with appointment date and time. Contact number for [facility] also provided. Contacted patient's Deyanira this evening to ensure that pt. was doing well and they had all that they needed. She seemed very cheerful to have Christophe home and denied any needs at this time. Ensured that she had the [facility] number and mine to call if any concerns. No further needs at this time.
== END 2021-05-09 12:25 | disposition home health service (06) | DRG 871 ==
LOC: ER 14:39 → MEDS 17:42 → PCU 17:42 → MEDS 20:20 → PCU 04-18 18:08 → MEDS 04-28 13:35
PROVIDERS: Emergency Medicine; Family Medicine; Internal Medicine; Internal Medicine Gastroenterology; ADMIT Internal Medicine
PROC: 5A0945A Assistance with Respiratory Ventilation, 24-96 Consecutive Hours, High Flow/Velocity Cannula (ICD-10-PCS; principal; 2021-04-17)
PROC: 8E0ZXY6 Isolation (ICD-10-PCS; 2021-04-17)
PROC: 3E0333Z Introduction of Anti-inflammatory into Peripheral Vein, Percutaneous Approach (ICD-10-PCS; 2021-04-17)
PROC: 5A09457 Assistance with Respiratory Ventilation, 24-96 Consecutive Hours, Continuous Positive Airway Pressure (ICD-10-PCS; 2021-04-18)
DX: A41.89 Other specified sepsis (principal); U07.1 COVID-19; J12.82 Pneumonia due to coronavirus disease 2019; J96.01 Acute respiratory failure with hypoxia; G92 Toxic encephalopathy; N17.9 Acute kidney failure, unspecified; E66.01 Morbid (severe) obesity due to excess calories; Z68.38 Body mass index [BMI] 38.0-38.9, adult; E11.22 Type 2 diabetes mellitus with diabetic chronic kidney disease; I12.9 Hypertensive chronic kidney disease with stage 1 through stage 4 chronic kidney disease, or unspecified chronic kidney disease; E83.39 Other disorders of phosphorus metabolism; E11.621 Type 2 diabetes mellitus with foot ulcer; R74.01 Elevation of levels of liver transaminase levels; E83.41 Hypermagnesemia; E87.5 Hyperkalemia; N18.30 Chronic kidney disease, stage 3 unspecified; I70.0 Atherosclerosis of aorta; K76.0 Fatty (change of) liver, not elsewhere classified; D69.6 Thrombocytopenia, unspecified; M79.81 Nontraumatic hematoma of soft tissue; L97.529 Non-pressure chronic ulcer of other part of left foot with unspecified severity; M10.9 Gout, unspecified; Z96.653 Presence of artificial knee joint, bilateral; Z79.899 Other long term (current) drug therapy; Z90.49 Acquired absence of other specified parts of digestive tract
CPT/HCPCS: 36415; 36600; 71045; 71260; 76705; 80048; 80053; 80074; 81001; 82330; 82728; 82803; 82947; 83516; 83735; 83880; 84100; 84145; 85025; 85027; 85379; 85610; 85730; 86038; 86140; 86644; 86645; 86665; 86694; 87496; 87497; 92526; 92610; 93005; 93010; 93306; 93975; 94640; 94660; 94664; 94762; 96374; 97110; 97112; 97116; 97162; 97166; 97530; 97530-CQ; 97535; 99285-25; A9270; C1751; C9113; J0360; J0456; J0610; J0696; J1100; J1650; J1815; J2060; J2405; J2765; J2920; J2930; J7030; J7040; J7050; J7509; J7626; Q9967; U0004

== ENCOUNTER 2022-01-22 08:33 | Day surgery (SDC) | payer OTHER ==
[~2022-01-22] VITALS: Ht 172.7 cm; Wt 122.7 kg
[~2022-01-22 08:33] MED LIST changes: +ALLO300 PO; +FUROSEMIDE20 MG PO; +KLOR-CON 1010 ME3 PO; +LOSA50 PO; +MEDIHONEY; +METPRE8 PO; +XARELTO20 MG PO
--- NOTE | 2022-01-22 09:19 | NUR ---
01/22/22 0919 Ronel Jo CALL LIGHT WITHIN REACH.
--- NOTE | 2022-01-22 10:05 | NUR ---
01/22/22 Chema5 Ronel Jo PT SMILING AND LAUGHING HE WALKED OUT TO CAR. RN ASSISTED PATIENT OUT TO CAR. PT AMBULATION STEADY.
== END 2022-01-22 10:00 | disposition home or self-care (01) ==
LOC: ORSCSDS 08:33
PROVIDERS: Anesthesiology
PROC: 3E0R33Z Introduction of Anti-inflammatory into Spinal Canal, Percutaneous Approach (ICD-10-PCS; principal; 2022-01-22 09:30)
DX: M51.16 Intervertebral disc disorders with radiculopathy, lumbar region (principal); E11.9 Type 2 diabetes mellitus without complications; G47.33 Obstructive sleep apnea (adult) (pediatric); I12.9 Hypertensive chronic kidney disease with stage 1 through stage 4 chronic kidney disease, or unspecified chronic kidney disease; N18.9 Chronic kidney disease, unspecified; E66.01 Morbid (severe) obesity due to excess calories; Z68.41 Body mass index [BMI] 40.0-44.9, adult; Z79.82 Long term (current) use of aspirin; Z79.899 Other long term (current) drug therapy
CPT/HCPCS: 82947; J1040

== ENCOUNTER 2022-07-16 09:52 | Day surgery (SDC) | payer OTHER ==
[~2022-07-16] VITALS: Ht 172.7 cm; Wt 131.6 kg
== END 2022-07-16 11:05 | disposition home or self-care (01) ==
LOC: ORSCSDS 09:52
PROVIDERS: Anesthesiology
PROC: 3E0R33Z Introduction of Anti-inflammatory into Spinal Canal, Percutaneous Approach (ICD-10-PCS; principal; 2022-07-16 11:15)
DX: M51.16 Intervertebral disc disorders with radiculopathy, lumbar region (principal); E11.22 Type 2 diabetes mellitus with diabetic chronic kidney disease; I12.9 Hypertensive chronic kidney disease with stage 1 through stage 4 chronic kidney disease, or unspecified chronic kidney disease; N18.9 Chronic kidney disease, unspecified; E66.01 Morbid (severe) obesity due to excess calories; Z68.41 Body mass index [BMI] 40.0-44.9, adult; G47.33 Obstructive sleep apnea (adult) (pediatric); Z79.85 Long-term (current) use of injectable non-insulin antidiabetic drugs; Z79.51 Long term (current) use of inhaled steroids; Z79.899 Other long term (current) drug therapy
CPT/HCPCS: J1040

== ENCOUNTER 2024-08-05 10:30 | Day surgery (SDC) | payer OTHER ==
[~2024-08-05] VITALS: Ht 172.7 cm; Wt 118.8 kg
[~2024-08-05 10:30] MED LIST changes: +Balanced Salt Epinephrine Irrigation Solution 500 mL IR SCH; +CARV3.125 PO; +Diazepam 2 MG Tab ONE; +Diazepam 5 MG Tab ONE; +ELIQUIS5 M2 PO; +ENTRESTO 24 MG1 EACH PO; +JARDIANCE10 MG PO; +Lidocaine HCl/Pf 1% 5 ML VIAL XX SCH; +Moxifloxacin HCL 0.5 MG/0.1 ML 0.4MLSYR RIGHTEYE SCH; +PHENYLEPHRINE\\TROPICAMIDE\\TETRACAINE OPHTHALMIC DILATING SOLN RIGHTEYE PRN; +Povidone-Iodine 450 DROP/30 ML Solution ONE; +Povidone-Iodine 450 DROP/30 ML Solution RIGHTEYE SCH; +SPIR25 PO; +TRADJENTA5 MG PO; +Tetracaine HCl/Pf 0.5% Opth Soln 4 ml ONE; +Triamcinolone Inj Susp 40 MG / ML 1ML Vial INJ SCH; +Triamcinolone Inj Susp 40 MG / ML 1ML Vial ONE
[2024-08-05] MEDS ORDERED: METOPROLOL SUCC25 MG PO (10:47)
[2024-08-05] MEDS ORDERED: SYNTHROID25 M12 PO (10:48)
[2024-08-05] MEDS ORDERED: Tetracaine HCl 0.5% Opth Soln 15 ml RIGHTEYE ONE (11:06)
[2024-08-05 11:28] VITALS: BP 117/69
== END 2024-08-05 11:42 | disposition home or self-care (01) ==
LOC: ORSCSDS 10:30
PROVIDERS: Ophthalmology
PROC: 08RJ3JZ Replacement of Right Lens with Synthetic Substitute, Percutaneous Approach (ICD-10-PCS; principal; 2024-08-05 11:30)
DX: E11.36 Type 2 diabetes mellitus with diabetic cataract (principal); H25.813 Combined forms of age-related cataract, bilateral; H52.201 Unspecified astigmatism, right eye; H35.30 Unspecified macular degeneration; Z95.0 Presence of cardiac pacemaker; I48.91 Unspecified atrial fibrillation; I10 Essential (primary) hypertension; G47.33 Obstructive sleep apnea (adult) (pediatric); Z79.899 Other long term (current) drug therapy
CPT/HCPCS: 82947; A9270; J3301; V2632

== ENCOUNTER 2024-08-12 09:08 | Day surgery (SDC) | payer OTHER ==
[~2024-08-12] VITALS: Ht 172.7 cm; Wt 119.1 kg
[~2024-08-12 09:08] MED LIST changes: -Diazepam 2 MG Tab ONE; -Diazepam 5 MG Tab ONE; +METOPROLOL SUCC25 MG PO; +Moxifloxacin HCL 0.5 MG/0.1 ML 0.4MLSYR LEFTEYE SCH; -Moxifloxacin HCL 0.5 MG/0.1 ML 0.4MLSYR RIGHTEYE SCH; +PHENYLEPHRINE\\TROPICAMIDE\\TETRACAINE OPHTHALMIC DILATING SOLN LEFTEYE PRN; -PHENYLEPHRINE\\TROPICAMIDE\\TETRACAINE OPHTHALMIC DILATING SOLN RIGHTEYE PRN; +Povidone-Iodine 450 DROP/30 ML Solution LEFTEYE SCH; -Povidone-Iodine 450 DROP/30 ML Solution RIGHTEYE SCH; +SYNTHROID25 M12 PO
[2024-08-12] MEDS ORDERED: Diazepam 2 MG Tab ONE (09:19)
[2024-08-12] MEDS ORDERED: Diazepam 5 MG Tab ONE (09:19)
[2024-08-12] MEDS ORDERED: Tropicamide 1% Opth Soln 15 ML BTL ONE (09:20)
--- NOTE | 2024-08-12 09:28 | NUR ---
08/12/24 0928 Diana Rodriguez VALIUM 7MG AT 0924. TETRACAINE AT 09 PLEDGET AT 0926
[2024-08-12] MEDS ORDERED: FentaNYL Citrate 50 MCG/ML 2 ML Injection ONE (10:03)
[2024-08-12 10:46] VITALS: BP 139/71
== END 2024-08-12 10:46 | disposition home or self-care (01) ==
LOC: ORSCSDS 09:08
PROVIDERS: Ophthalmology
PROC: 08RK3JZ Replacement of Left Lens with Synthetic Substitute, Percutaneous Approach (ICD-10-PCS; principal; 2024-08-12 10:30)
DX: E11.36 Type 2 diabetes mellitus with diabetic cataract (principal); H25.812 Combined forms of age-related cataract, left eye; H52.202 Unspecified astigmatism, left eye; Z96.1 Presence of intraocular lens; I10 Essential (primary) hypertension; G47.33 Obstructive sleep apnea (adult) (pediatric); E03.9 Hypothyroidism, unspecified; Z95.0 Presence of cardiac pacemaker; I48.91 Unspecified atrial fibrillation; Z79.01 Long term (current) use of anticoagulants; I12.9 Hypertensive chronic kidney disease with stage 1 through stage 4 chronic kidney disease, or unspecified chronic kidney disease; E11.22 Type 2 diabetes mellitus with diabetic chronic kidney disease; N18.9 Chronic kidney disease, unspecified; Z86.16 Personal history of COVID-19; H35.30 Unspecified macular degeneration; Z79.899 Other long term (current) drug therapy
CPT/HCPCS: 82947; A9270; J3010; J3301; V2632